=== PATIENT | male | born 1945 | race Caucasian/White ===

== ENCOUNTER 2016-07-14 12:26 | Inpatient (IN) | payer MEDICARE ==
[2016-07-14 13:38] LABS: Hematocrit 34 % (42-52); Hemoglobin 11.4 g/dl (14.0-18.0); Mean Corpuscular HGB Conc 34 g/dl (31-36); Mean Corpuscular Hemoglobin 27 pg (27-31); Mean Corpuscular Volume 81 fL (80-94); Mean Platelet Volume 8 um3 (7.4-10.4); Red Blood Count 4.18 10^6/ul (4.0-5.4); Red Cell Distribution Width 14 % (10.5-15); White Blood Count 9.4 10^3/ul (3.5-10.8)
[2016-07-14 13:51] LABS: Albumin 3.6 g/dL (3.2-5.2); BUN/Creatinine Ratio 19.1 (8-20); C Reactive Protein 5.72 mg/L (< 5.00); Calcium 8.9 mg/dL (8.6-10.3); EGFR African American 69.8 (>60); EGFR Non-African American 54.3 (>60); Globulin 2.7 g/dL (2-4); Potassium 4.5 mmol/L (3.5-5.0); Total Bilirubin 0.4 mg/dL (0.2-1.0); Total Protein 6.3 g/dL (6.4-8.9); Troponin I 0.03 ng/mL (<0.04)
[2016-07-14] MEDS ORDERED: Iodixanol* (CONTRAST) 320 MG/ML 100 ML SDV IV ONE (15:01)
[2016-07-14 15:18] LABS: Urine Bacteria Absent (Absent); Urine Bilirubin Negative (Negative); Urine Glucose 2+(150 mg/dL) (Negative); Urine Nitrite Negative (Negative)
--- NOTE | 2016-07-14 15:46 | RAD ---
CLINICAL HISTORY: Right lower quadrant pain COMPARISON: July 27, 2007 TECHNIQUE: Multiple contiguous axial CT scans were obtained of the abdomen and pelvis after the administration of intravenous contrast. Coronal and sagittal multiplanar reformations are submitted for review. Oral contrast was administered. Delayed images were obtained through the abdomen FINDINGS: LUNG BASES: The lung bases are clear. LIVER: The liver is diffusely low in attenuation compared to the spleen. There are no focal hepatic parenchymal masses. BILE DUCTS: There is no intrahepatic or extrahepatic biliary dilatation. GALLBLADDER: The gallbladder is not visualized. Surgical clips are noted in the gallbladder fossa. PANCREAS: The pancreas is normal, without mass or ductal dilatation. SPLEEN: Normal in size and appearance. UPPER GI TRACT: Evaluation of the gastrointestinal tract is limited by incomplete gastric distention. The upper GI tract is unremarkable. SMALL BOWEL AND MESENTERY: The small bowel is normal in contour, course, and caliber. There is no obstruction or dilatation. COLON: The appendix is noted to be tubular and dilated without significant peripancreatic inflammatory change. There is mucosal thickening of the cecum at the root of the appendix. ADRENALS: Normal bilaterally. KIDNEYS: The kidneys are normal in shape, size, contour, and axis. There is no hydronephrosis or nephrolithiasis. BLADDER: The bladder is smooth in contour. PELVIC ORGANS: The prostate is diffusely enlarged. The seminal vesicles are symmetric. AORTA: The aorta is normal. IVC: Unremarkable LYMPH NODES: There is no lymphadenopathy by size criteria. ABDOMINAL WALL: There is no evidence for abdominal wall hernia. BONES AND SOFT TISSUES: There are mild diffuse degenerative changes. OTHER: None IMPRESSION: 1. THE APPENDIX APPEARS HYDROPIC WITH MUCOSAL THICKENING OF THE CECUM AT THE BASE OF THE APPENDIX. 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 THE DIFFERENTIAL ALSO INCLUDES MUCOCELE OR MUCINOUS NEOPLASM OF THE APPENDIX. ACUTE APPENDICITIS IS CONSIDERED LESS LIKELY. RECOMMEND CORRELATION WITH DIRECT VISUALIZATION. 2. FATTY INFILTRATION OF THE LIVER
[2016-07-14] MEDS ORDERED: Ondansetron INJ* 2 MG/ML VIAL IV ONE (15:53)
[2016-07-14] MEDS ORDERED: Morphine INJ* 4 MG/ML 1 ML CARPUJECT IV ONE ×2 (15:53→16:38)
[2016-07-14] MEDS ORDERED: Acetaminophen TAB* 325 MG PO PRN (17:47)
[2016-07-14] MEDS ORDERED: Pantoprazole TAB (NF) 40 MG TAB PO ONE (17:47)
[2016-07-14] MEDS ORDERED: Dextrose 50% Syringe 50 ML* 25 GM/50 ML SYRINGE IV PUSH PRN (17:52)
[2016-07-14] MEDS ORDERED: Omeprazole CAP* 20 MG PO SCH (18:00)
[2016-07-14] MEDS ORDERED: Insulin GLARGINE(*) 1 UNITS UNIT SUBCUT SCH (18:00)
--- NOTE | 2016-07-14 18:15 | ED ---
I, Oh,Sussy, scribed for Saturnino Bynmu MD on 07/14/16 at 1332 . Abdominal Pain/Male - HPI Summary HPI Summary: This 71 y/o male presents to ED for acute, dull RLQ pain that woke him up this morning. Triage note indicates that pt's chief complaint was located at upper abd, but pt states that this is incorrect at the time of initial evaluation. Pt reports mild nausea but denies any vomiting, diarrhea, dysuria, or fever. Pt denies hx of any similar pain in the past. PMHx does include DM type II, cholelithiasis s/p cholecystectomy, kidney stone, and HTN. Pt did not have appendicitis before. Pt is nonsmoker and nondrinker. - History of Current Complaint Chief Complaint: EDAbdPain Stated Complaint: RIGHT ABD PAIN Time Seen by Provider: 07/14/16 13:17 Hx Obtained From: Patient Onset/Duration: Sudden Onset Timing: Constant Severity Initially: Moderate Severity Currently: Moderate Pain Intensity: 6 Pain Scale Used: 0-10 Numeric Location: Discrete At: RLQ Radiates: No Character: Dull Aggravating Factor(s): Nothing Alleviating Factor(s): Nothing Associated Signs And Symptoms: Positive: Nausea. Negative: Fever, Urinary Symptoms, Vomiting, Diarrhea - Allergies/Home Medications Allergies/Adverse Reactions: Allergies Allergy/AdvReac Type Severity Reaction Status Date / Time No Known Allergies Allergy Verified 07/14/16 13:06 Home Medications: Home Medications Insulin NPH (Human) (Isophane) [Novolin N Relion] 40 units SUBCUT DAILY [History Confirmed 07/14/16] Insulin NPH (Human) (Isophane) [Novolin N Relion] 80 units SUBCUT DAILY [History Confirmed 07/14/16] PMH/Surg Hx/FS Hx/Imm Hx Endocrine/Hematology History: Reports: Hx Diabetes Cardiovascular History: Reports: Hx Hypercholesterolemia, Hx Hypotension GI History: Reports: Other GI Disorders - cholelithiasis Infectious Disease History: No Infectious Disease History: Denies: Traveled Outside the [place] in Last 30 Days - Family History Known Family History: Negative: Hypertension, Diabetes - Social History Alcohol Use: None Hx Substance Use: No Substance Use Type: Reports: None Hx Tobacco Use: No Smoking Status (MU): Never Smoked Tobacco Review of Systems Negative: Fever Positive: Abdominal Pain - RLQ, Nausea. Negative: Vomiting, Diarrhea Negative: dysuria Negative: Anxious, Depressed All Other Systems Reviewed And Are Negative: Yes Physical Exam - Summary Physical Exam Summary: VITAL SIGNS: Reviewed. GENERAL: Patient is an obese male who is lying comfortable in the stretcher. Patient is not in any acute respiratory distress. HEAD AND FACE: Normocephalic and atraumatic. EYES: PERRLA, EOMI x 2, No injected conjunctiva. EARS: Hearing grossly intact. Ear canals and tympanic membranes are WNL. MOUTH: Oropharynx within normal limits. NECK: Supple, trachea is midline, no adenopathy, no JVD. CHEST: Symmetric, no tenderness at palpation LUNGS: Clear to auscultation bilaterally. No wheezing or crackles. CVS: RRR,, S1 and S2 present, no murmurs or gallops appreciated. ABDOMEN: Soft, positive RLQ tenderness. No signs of distention. Positive bowel sounds. No rebound no guarding, and no masses palpated. No abdominal bruit or pulsations. EXTREMITIES: FROM in all major joints, no edema, no cyanosis or clubbing. NEURO: Alert and oriented x 3. No acute neurological deficits. Speech is normal. SKIN: Dry and warm Triage Information Reviewed: Yes Vital Signs On Initial Exam: Initial Vitals Temp Pulse Resp BP Pulse Ox 97.4 F 74 18 131/52 100 07/14/16 12:30 07/14/16 12:30 07/14/16 12:30 07/14/16 12:30 07/14/16 12:30 Vital Signs Reviewed: Yes Diagnostics - Vital Signs Vital Signs Temp Pulse Resp BP Pulse Ox 07/14/16 12:30 97.4 F 74 18 131/52 100 - Laboratory Lab Results: Lab Results 07/14/16 07/14/16 07/14/16 Range/Units 13:20 13:20 13:20 WBC 9.4 (3.5-10.8) 10^3/ul RBC 4.18 (4.0-5.4) 10^6/ul Hgb 11.4 L (14.0-18.0) g/dl Hct 34 L (42-52) % MCV 81 (80-94) fL MCH 27 (27-31) pg MCHC 34 (31-36) g/dl RDW 14 (10.5-15) % Plt Count 157 (150-450) 10^3/ul MPV 8 (7.4-10.4) um3 Neut % (Auto) 77.4 (38-83) % Lymph % (Auto) 10.3 L (25-47) % Beltrami % (Auto) 7.7 (1-9) % Eos % (Auto) 3.9 (0-6) % Baso % (Auto) 0.7 (0-2) % Absolute Neuts (auto) 7.2 (1.5-7.7) 10^3/ul Absolute Lymphs (auto) 1.0 (1.0-4.8) 10^3/ul Absolute Monos (auto) 0.7 (0-0.8) 10^3/ul Absolute Eos (auto) 0.4 (0-0.6) 10^3/ul Absolute Basos (auto) 0.1 (0-0.2) 10^3/ul Absolute Nucleated RBC 0.01 10^3/ul Nucleated RBC % 0.1 Sodium 133 (133-145) mmol/L Potassium 4.5 (3.5-5.0) mmol/L Chloride 102 (101-111) mmol/L Carbon Dioxide 25 (22-32) mmol/L Anion Gap 6 (2-11) mmol/L BUN 25 H (6-24) mg/dL Creatinine 1.31 H (0.67-1.17) mg/dL Est GFR ( Amer) 69.8 (>60) Est GFR (Non-Af Amer) 54.3 (>60) BUN/Creatinine Ratio 19.1 (8-20) Glucose 244 H (70-100) mg/dL Calcium 8.9 (8.6-10.3) mg/dL Total Bilirubin 0.40 (0.2-1.0) mg/dL AST 13 (13-39) U/L ALT 13 (7-52) U/L Alkaline Phosphatase 60 (34-104) U/L Troponin I 0.03 (<0.04) ng/mL C-Reactive Protein 5.72 H (< 5.00) mg/L B-Natriuretic Peptide 54 ( - 100) pg/mL Total Protein 6.3 L (6.4-8.9) g/dL Albumin 3.6 (3.2-5.2) g/dL Globulin 2.7 (2-4) g/dL Albumin/Globulin Ratio 1.3 (1-3) Amylase 28 L (29-103) U/L Lipase 44 (11.0-82.0) U/L Result Diagrams: 07/14/16 13:20 07/14/16 13:20 Lab Statement: Any lab studies that have been ordered have been reviewed, and results considered in the medical decision making process. - CT Ab/P CT Interpretation: Positive (See Comments) - 1. THE APPENDIX APPEARS HYDROPIC WITH MUCOSAL THICKENING OF THE CECUM AT THE BASE OF THE APPENDIX. 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 THE DIFFERENTIAL ALSO INCLUDES MUCOCELE OR MUCINOUS NEOPLASM OF THE APPENDIX. ACUTE APPENDICITIS IS CONSIDERED LESS LIKELY. RECOMMEND CORRELATION WITH DIRECT VISUALIZATION. 2. FATTY INFILTRATION OF THE LIVER CT Interpretation Completed By: Radiologist - EKG 1315 Cardiac Rate: NL - 72 bpm EKG Rhythm: Sinus Rhythm ST Segment: Normal Ectopy: PVCs - Multiple Re-Evaluation - Re-Evaluation First Eval Re-Evaluation Time: 16:20 Change: Improved Comment: MD in room to update pt on CT imaging results and plan of care involving surgery consult and hospital admission. Pt is agreeable at this time. Abdominal Pain Fem Course/Dx - Course Assessment/Plan: This 71 y/o male presents to ED with chief complaint of RLQ pain. Pain started last night with nausea but without vomiting and diarrhea. Blood work is wnl except for mild anemia and mild renal insufficiency. 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 I discussed with Dr. Quintero ([facility]) who accepts the pt for admission. I aslo discussed the case with Dr. Amin (GI) who consulted the pt. Pt was given IV fluid, morphine for pain, and zonfran for nausea. He is hemodynamically stable and A & Ox3. - Diagnoses Differential Diagnosis/HQI/PQRI: Appendicitis, Bowel Obstruction, Constipation, Diverticulitis, Renal Colic Provider Diagnoses: Colonic neoplasm - Provider Notifications Discussed Care Of Patient With: Dr. Quintero (Surgery) at [address] Amin (GI) at [address] Love (Hospitalist) at 1638 PM Time Discussed With Above Provider: 16:16 Instructed by Provider To: Admit As Inpatient Discharge - Discharge Plan Condition: Stable Disposition: ADMITTED TO [facility] Referrals: Heath Mahoney MD [Primary Care Provider] - The documentation as recorded by the Carson arguelles Soohyun accurately reflects the service I personally performed and the decisions made by me, Saturnino Bynum MD.
[2016-07-14] MEDS: Morphine INJ* 4 MG/ML 1 ML CARPUJECT IV PRN (19:18)
[2016-07-14] MEDS: NS 0.9% 1000 ML* 1,000 ML IV SCH (19:20)
[2016-07-14] MEDS: Insulin LISPRO* 1 UNITS UNIT SUBCUT SCH (19:50)
[2016-07-14] MEDS: Heparin VIAL(*) 5000 UNITS/ML VIAL (FIVE THOUSAND) SUBCUT SCH (22:20)
[2016-07-15] MEDS: Morphine INJ* 4 MG/ML 1 ML CARPUJECT IV PRN ×2 (00:15→23:14)
[2016-07-15] MEDS: Insulin LISPRO* 1 UNITS UNIT SUBCUT SCH ×4 (00:15→20:00)
[2016-07-15] MEDS: NS 0.9% 1000 ML* 1,000 ML IV SCH ×2 (03:54→19:42)
--- NOTE | 2016-07-15 04:36 | CONS ---
CONSULTATION REPORT: DATE OF CONSULT: 07/14/16 PRIMARY CARE PROVIDER: Dr. Mahoney PHYSICIAN REQUESTING THE CONSULTATION: Dr. Quintero from surgery in regards to a patient with abdominal pain with diabetes and hypertension. CHIEF COMPLAINT: Abdominal pain. HISTORY OF PRESENT ILLNESS: The patient is a 71-year-old male with a history of diabetes, hypertension, obesity with a BMI of 40 kg per m. sq., who presents today complaining of sudden onset of right lower quadrant abdominal pain that happened today in the morning. The patient describes the pain as constant and initially at 2-3/10. At its maximum intensity, it is 6/10. Currently it is controlled with pain medication received in the emergency department. The patient has no other associated GI symptoms. He denies nausea or vomiting. He describes chronic epigastric problem that has been going on for "several years. " He had an EGD evaluation in 2010 which showed gastritis. That was due to history of anemia. At that point, he was placed on PPI. The patient describes the pain as intermittent, recurrent. The pain is epigastric and occurs usually after eating. Sometimes when he belches, it improves. Today though, he complains of different pain. It is localized in the right lower quadrant and it occurred in the morning and is constant. The patient did have one loose bowel movement today, which is not unusual for him. Usually, he has irregular bowel movements and usually they are loose. His last colonoscopy was 10 years ago as per patient and was "clean." His CT of the abdomen today showed appendiceal obstruction by possibility of colon mass. Dr. Quintero is admitting the patient for further evaluation and treatment, and Medicine is consulted in regards to medical management. PAST MEDICAL HISTORY: 1. History of diabetes type 2. 2. History of chronic kidney disease stage 3 due to diabetes. 3. History of hypertension. 4. Status post cholecystectomy. 5. History of gastritis on endoscopy in 2010. MEDICATIONS: Include: 1. NPH insulin 80 units in the morning and 40 units at night. 2. Hydrochlorothiazide 25 mg daily. 3. Glipizide 5 mg b.i.d. 4. Simvastatin 40 mg daily. 5. Omeprazole 20 mg b.i.d. 6. Lisinopril 40 mg daily. 7. Metformin 1000 mg at bedtime and 1500 mg in the a.m. 8. Metoprolol succinate 25 mg daily. ALLERGIES: No known drug allergies. FAMILY HISTORY: Positive for father who at the age of 84 as a consequence of COPD. Mother with history of heart disease who of pancreatic cancer at the age of 93. SOCIAL HISTORY: The patient denies any tobacco, alcohol, or drug use. 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 His surrogate is his , Ava Ochoa. REVIEW OF SYSTEMS: Please see history of present illness. All the remaining 14 systems were reviewed with the patient and were otherwise negative. PHYSICAL EXAM: Vitals: Blood pressure of 158/47, heart rate of 72 and regular , respiratory rate of 20, oxygen saturation 96% on room air, temperature of 97.4. General: The patient is a very pleasant 71-year-old obese male who is in no acute distress. Alert, awake, and oriented x3. HEENT: Head atraumatic, normocephalic. Eyes: Pupils are equal and reactive to light and accommodation. Oropharynx is clear. Mucosa moist. Neck: Supple. No JVD. No bruits bilaterally. Cardiovascular: Regular rate and rhythm. No murmurs. Respiratory : Clear to auscultation bilaterally. Abdomen: Large, protuberant, and soft. There is mild tenderness in the right lower quadrant with no rebound and no guarding. Bowel sounds present in all 4 quadrants. Extremities: There is no edema. Pulses +2 bilaterally. No clubbing or cyanosis. Neuro Evaluation: Speech is clear. Cranial nerves II through XII are grossly intact. Motor strength is 5/5 bilaterally. Psychiatric Evaluation: Oriented x3, pleasant and cooperative with the evaluation with no evidence of anxiety or depression. DIAGNOSTIC STUDIES/LABORATORY DATA: Laboratory data shows white blood cell count of 9.4, hemoglobin 11.4, hematocrit of 34, and platelets of 157. Sodium of 133, potassium 4.5, chloride 102, carbon dioxide 25, BUN 25, creatinine 1.3. Liver function tests were unremarkable. Glucose of 244, C-reactive protein of 5.7, troponin of 0.03. Urinalysis: Trace protein, trace rbc's, and +2 glucose. EKG showed sinus rhythm with 2 PVCs, borderline left axis deviation. Please note that when the patient was evaluated by myself, I observed his bus driver/monitor, and he did not have anymore premature ventricular complexes. The patient's most recent cardiac stress test was performed in 2013 and was " low risk." ASSESSMENT AND PLAN: This is a 71-year-old obese male with history of diabetes mellitus and hypertension, who presents with sudden onset of right lower quadrant abdominal pain with CT showing hydropic appendix with most likely appendiceal obstruction secondary to a colonic neoplasm. In regards to appendiceal obstruction, Dr. Quintero is admitting the patient. Dr. Amin is going to consult and most likely perform colonoscopy in a day or two. In regards to patient's history of chronic epigastric discomfort, the differential at this point includes gastritis versus hiatal hernia symptomatology versus gastroparesis. At this point, the patient is not complaining of that problem, and he has planned an outpatient evaluation with Dr. Amin with upper endoscopy to follow up on that. At this point, omeprazole 2 times a day is going to be continued. In regards to the patient's diabetes, the patient is clinically n.p.o. unless p.o. diet by the surgeon. Due to that, his insulin is going to be held and he is going to be placed on insulin sliding scale and his oral hypoglycemics also are going to be held. With regards to his hypertension, his current pressure is right now in the 150s. I will continue his Toprol-XL and hold his other blood pressure medications for the time being. In regards to preoperative evaluation of this patient, the patient has no history of worsening dyspnea with exertion. He has not had any chest pain. His last stress test was in 2013 and it was unremarkable. He never had cardiac evaluation and he never required one. His EKG did show 2 PVCs, but currently he has not had any frequent PVCs on telemetry monitored bed when observed. At this point, the patient is optimized for anticipated surgery and no further evaluation is required. For DVT prophylaxis, heparin subcutaneously was provided by the surgeon. Medicine will follow up with the patient on a daily basis. Thank you very much for allowing me to see your patient in consultation. Approximately 62 minutes was spent on the patient's consultation. CC: Dr. Amin; Dr. Quintero * [id number]/CPS #: [id number] MTDD
--- NOTE | 2016-07-15 05:01 | HP ---
HISTORY AND PHYSICAL: DATE OF ADMISSION: 07/14/16 REASON FOR ADMISSION: Right lower quadrant abdominal pain and abnormal CAT scan. HISTORY OF PRESENT ILLNESS: Mr. Ja Ochoa is a 71-year-old gentleman who presented to the emergency room after he developed some right lower quadrant abdominal pain early this morning. It seemed to progress in severity, presented to the emergency room this afternoon. It had not been associated with nausea or vomiting, although he has been somewhat anorexic. He has had no fevers, shakes, or chills. Generalized abdominal pain. He had normal looser bowel movements yesterday. He denies any recent melena or change in bowel habits including bright red blood per rectum. He does give a history of intermittent loose bowel movements, but describes this as being very chronic over the past many years. In the emergency room, he was noted to be afebrile with stable vital signs. He has some tenderness in the right lower quadrant without rebound, guarding, or peritoneal signs. Laboratory values included a white blood cell count of 9.4 with a hemoglobin of 11.4 with an MCV of 81. Review of the older records of past 3 to 4 years shows this anemia to be pretty much unchanged. BUN and creatinine of 25 and 1.1, but the remainder of his chemistry values were otherwise unremarkable. He underwent a CT scan of the abdomen and pelvis. I did review these images. This shows an appendix, which was hydropic, i.e., dilated without evidence of periappendiceal inflammation. The appendix diameter of at least 2 cm. There was significant mucosal thickening at the cecum with a mass-like effect, which likely represented appendiceal obstruction secondary to colonic neoplasm, but also consideration of appendiceal mucocele/mucinous neoplasm of the appendix. Acute appendicitis was considered less likely. Also noted was fatty infiltration of the liver, but no other acute findings were noted. He gives a history of anemia and he had a colonoscopy about 10 years ago. He did undergo an upper endoscopy about 5 years ago for anemia and also a capsule endoscopy, which were unremarkable. He does take omeprazole for reflux disease. Only other associated symptoms over the past month would be some epigastric discomfort that lasted for several hours after eating. PAST MEDICAL HISTORY: 1. Obesity. 2. Insulin-dependent diabetes. 3. Hypertension. 4. Hypercholesterolemia. MEDICATIONS: Include: 1. Metoprolol 25 mg daily. 2. Metformin daily. 3. Lisinopril 40 mg daily. 4. Omeprazole 20 mg b.i.d. 5. Glipizide/hydrochlorothiazide 25 mg daily. 6. Simvastatin 40 mg daily. PAST SURGICAL HISTORY: Laparoscopic cholecystectomy. ALLERGIES: He has no known drug allergies. 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 He is . He has grown children. REVIEW OF SYSTEMS: Cerebrovascular: He has no visual disturbance or headaches. Cardiovascular: No chest pain or shortness of breath. Pulmonary: No wheezing or hemoptysis. GI: As per above. : No urgency or hematuria. Musculoskeletal: Unremarkable. Psych: Unremarkable. PHYSICAL EXAMINATION GENERAL: He is an obese male, appears to be in no apparent distress. Awake, alert, conversive, and actually quite pleasant. VITAL SIGNS: Temperature 97.4, pulse 72, and blood pressure 158/47. HEENT: Sclerae is anicteric. Oral mucosa is moist. External ears are unremarkable. NECK: Trachea was midline. There is no obvious masses or asymmetry. LUNGS: Clear to auscultation with diminished breath sounds at the bases. He has normal respiratory effort. HEART: Regular rate and rhythm without murmurs, rubs, or gallops. ABDOMEN: Obese and soft. He has some difficulty to see upper abdominal laparoscopic incision without hernia. He had normoactive bowel sounds throughout. He is nondistended. He has some tenderness in the right lower quadrant on deeper palpation without rebound, guarding, or prepotential signs. I appreciate no inguinal hernias. EXTREMITIES: Show no cyanosis or edema. PSYCHIATRIC: He is awake, alert, and oriented x3. He has normal judgement and insight. IMPRESSION: 1. Right lower quadrant abdominal pain without acute abdominal findings. He has a normal white count. He is mildly anemic, which appears to be chronic. CT scan as per above, which shows findings worrisome for a cecal malignancy with probable appendiceal orifice obstruction causing distention of the appendix versus an appendiceal neoplasm such as a mucocele, which maybe somewhat intussuscepted with the right colon. This does not appear to be acute appendicitis both clinically as well as by the CT scan findings and I just suspect this discomfort is due to the appendiceal obstruction. 2. Insulin-dependent diabetes. 3. Morbid obesity. 4. Hypertension. 5. Hypercholesterolemia. PLAN: 1. The patient will be admitted to the Surgical Services and kept n.p.o. I will not start IV antibiotics at this time. 2. Administer analgesia. 3. Hospitalist consultation will be obtained for management of his diabetes, hypertension, and medical conditions. He also will require most likely preoperative medical evaluation for surgery. 4. Gastroenterology consult has been obtained. I discussed the case with Dr. Luis Alfredo Amin. I think that a colonoscopy is warranted for several reasons initially to make a diagnosis of a possible neoplasm, which would require a right hemicolectomy. Colonoscopy would also rule out any other synchronous disease prior to any surgical intervention. 5. Dr. Amin will see him most likely tomorrow to start a colonoscopy prep and plan colonoscopy for Friday. 6. I discussed all the findings both with the patient and his at the bedside including a written diagrams explaining the pathology and the proposed workup and treatment course. I suspect this will require surgical intervention , most likely with a right hemicolectomy, be the laparoscopic open this admission after the above workup. Obviously, if his pain worsens, developed some worsening discomfort such as developed signs of peritonitis, would require more urgent/emergent surgical procedure. CC: Heath Mahoney MD of [facility]; Luis Alfredo Amin MD from [facility] * [id number]/CPS #: [id number] [facility]
[2016-07-15] MEDS: Heparin VIAL(*) 5000 UNITS/ML VIAL (FIVE THOUSAND) SUBCUT SCH ×3 (05:59→22:26)
[2016-07-15 06:47] LABS: Hematocrit 34 % (42-52); Hemoglobin 11.4 g/dl (14.0-18.0); Mean Corpuscular HGB Conc 33 g/dl (31-36); Mean Corpuscular Hemoglobin 27 pg (27-31); Mean Corpuscular Volume 82 fL (80-94); Mean Platelet Volume 8 um3 (7.4-10.4); Red Blood Count 4.15 10^6/ul (4.0-5.4); Red Cell Distribution Width 15 % (10.5-15); White Blood Count 13.5 10^3/ul (3.5-10.8)
[2016-07-15] MEDS ORDERED: Insulin NPH(*) 1 UNITS UNIT SUBCUT SCH (07:00)
[2016-07-15 07:06] LABS: BUN/Creatinine Ratio 16.1 (8-20); Calcium 8.5 mg/dL (8.6-10.3); EGFR African American 66.3 (>60); EGFR Non-African American 51.5 (>60); Potassium 4.4 mmol/L (3.5-5.0)
[2016-07-15] MEDS: Omeprazole CAP* 20 MG PO SCH ×2 (07:25→16:35)
[2016-07-15] MEDS: Atorvastatin* 20 MG TAB PO SCH (08:30)
[2016-07-15] MEDS: Metoprolol Succinate XL TAB* 25 MG PO SCH (08:30)
--- NOTE | 2016-07-15 09:45 | PN ---
Progress Note - Progress Note SOAP: Subjective: Some more pain in right lower quadrant today No N/V, no BM. Anorexic Objective: Temp Pulse Resp BP Pulse Ox 99.4 F 67 18 147/54 99 07/15/16 07:42 07/15/16 07:42 07/15/16 08:00 07/15/16 07:42 07/15/16 07:42 Intake & Output 07/13/16 07/14/16 07/15/16 07/16/16 06:59 06:59 06:59 06:59 Intake Total 1035 Output Total 800 150 Balance 235 -150 Weight 295 lb Intake: IV Fluids 985 NS (0.9%) 985 Oral 50 Output: Urine 800 150 PEX: Comfortable Lungs are CTA Abd is soft and non-distended. There are decreased bowel sounds preent. He has tenderness in the RLQ without mass with some guarding. No generalized pain. Extremities without edema Laboratory Last Values WBC 13.5 10^3/ul (3.5-10.8) H 07/15/16 06:29 RBC 4.15 10^6/ul (4.0-5.4) 07/15/16 06:29 Hgb 11.4 g/dl (14.0-18.0) L 07/15/16 06:29 Hct 34 % (42-52) L 07/15/16 06:29 MCV 82 fL (80-94) 07/15/16 06:29 MCH 27 pg (27-31) 07/15/16 06:29 MCHC 33 g/dl (31-36) 07/15/16 06:29 RDW 15 % (10.5-15) 07/15/16 06:29 Plt Count 161 10^3/ul (150-450) 07/15/16 06:29 MPV 8 um3 (7.4-10.4) 07/15/16 06:29 Neut % (Auto) 77.4 % (38-83) 07/14/16 13:20 Lymph % (Auto) 10.3 % (25-47) L 07/14/16 13:20 [place] % (Auto) 7.7 % (1-9) 07/14/16 13:20 Eos % (Auto) 3.9 % (0-6) 07/14/16 13:20 Baso % (Auto) 0.7 % (0-2) 07/14/16 13:20 Absolute Neuts (auto) 7.2 10^3/ul (1.5-7.7) 07/14/16 13:20 Absolute Lymphs (auto) 1.0 10^3/ul (1.0-4.8) 07/14/16 13:20 Absolute Monos (auto) 0.7 10^3/ul (0-0.8) 07/14/16 13:20 Absolute Eos (auto) 0.4 10^3/ul (0-0.6) 07/14/16 13:20 Absolute Basos (auto) 0.1 10^3/ul (0-0.2) 07/14/16 13:20 Absolute Nucleated RBC 0.01 10^3/ul 07/14/16 13:20 Nucleated RBC % 0.1 07/14/16 13:20 Sodium 135 mmol/L (133-145) 07/15/16 06:29 Potassium 4.4 mmol/L (3.5-5.0) 07/15/16 06:29 Chloride 101 mmol/L (101-111) 07/15/16 06:29 Carbon Dioxide 26 mmol/L (22-32) 07/15/16 06:29 Anion Gap 8 mmol/L (2-11) 07/15/16 06:29 BUN 22 mg/dL (6-24) 07/15/16 06:29 Creatinine 1.37 mg/dL (0.67-1.17) H 07/15/16 06:29 Est GFR ( Amer) 66.3 (>60) 07/15/16 06:29 Est GFR (Non-Af Amer) 51.5 (>60) 07/15/16 06:29 BUN/Creatinine Ratio 16.1 (8-20) 07/15/16 06:29 Glucose 171 mg/dL (70-100) H 07/15/16 06:29 POC Glucose (mg/dL) 173 mg/dL (74-106) H 07/15/16 05:53 Calcium 8.5 mg/dL (8.6-10.3) L 07/15/16 06:29 Total Bilirubin 0.40 mg/dL (0.2-1.0) 07/14/16 13:20 AST 13 U/L (13-39) 07/14/16 13:20 ALT 13 U/L (7-52) 07/14/16 13:20 Alkaline Phosphatase 60 U/L (34-104) 07/14/16 13:20 Troponin I 0.03 ng/mL (<0.04) 07/14/16 13:20 C-Reactive Protein 5.72 mg/L (< 5.00) H 07/14/16 13:20 B-Natriuretic Peptide 54 pg/mL (-100) 07/14/16 13:20 Total Protein 6.3 g/dL (6.4-8.9) L 07/14/16 13:20 Albumin 3.6 g/dL (3.2-5.2) 07/14/16 13:20 Globulin 2.7 g/dL (2-4) 07/14/16 13:20 Albumin/Globulin Ratio 1.3 (1-3) 07/14/16 13:20 Amylase 28 U/L (29-103) L 07/14/16 13:20 Lipase 44 U/L (11.0-82.0) 07/14/16 13:20 Urine Color Yellow 07/14/16 15:00 Urine Appearance Clear 07/14/16 15:00 Urine pH 6.0 (5-9) 07/14/16 15:00 Ur Specific [place] 1.021 (1.010-1.030) 07/14/16 15:00 Urine Protein 1+(30 mg/dl) (Negative) H 07/14/16 15:00 Urine Ketones Negative (Negative) 07/14/16 15:00 Urine Blood Negative (Negative) 07/14/16 15:00 Urine Nitrate Negative (Negative) 07/14/16 15:00 Urine Bilirubin Negative (Negative) 07/14/16 15:00 Urine Urobilinogen Negative (Negative) 07/14/16 15:00 Ur Leukocyte Esterase Negative (Negative) 07/14/16 15:00 Urine WBC (Auto) Trace(0-5/hpf) (Absent) 07/14/16 15:00 Urine RBC (Auto) 1+(3-5/hpf) (Absent) H 07/14/16 15:00 Urine Bacteria Absent (Absent) 07/14/16 15:00 Urine Glucose 2+(150 mg/dl) (Negative) H 07/14/16 15:00 Assessment: RLQ abd pain with mass in cecum/appendix--?? neoplasm v benign process WBC elevation this morning Medical issues as documented Plan: With persistent and slightly worsening pain and increase in WBC I'm concerned that there is developing inflammation/perforation that will require operative intervention prior to any further work-up such as colonoscopy. I discussed with Dr. Amin and colonoscopy cannot be done until tomorrow and I feel that surgical intervention is indicated to treat and thus we will proceed with OR today and plan laparoscopy and probable laparotomy later today. Will start IV antibiotics and keep NPO Discussed also with patient and he agrees with plan. Dr. Andrade will be performing surgery and I have discussed the case with him in detail and also informed the patient of this. Also discussed with Felipa Castle from hospitalist service.
[2016-07-15] MEDS ORDERED: Piperac/Tazob 3.375 gm in NS* 3.375 GM/100 ML BAG IVPB ONE (10:00)
[2016-07-15] MEDS ORDERED: Buffered Lidocaine 1% SYR 3ML* 3 ML/SYR SYRINGE INTRADERM ONE (10:06)
[2016-07-15] MEDS ORDERED: Famotidine IV* 10 MG/ML 2 ML (20 mg) IV ONE (10:06)
[2016-07-15] MEDS ORDERED: Metoclopramide IV* 5 MG/ML 2 ML VIAL IV SLOW PU ONE (10:06)
[2016-07-15] MEDS ORDERED: HYDROmorphone INJ* 1 MG/ML CARPUJECT SYRINGE ONE ×5 (10:20→18:38)
[2016-07-15] MEDS ORDERED: fentaNYL* 50 MCG/ML 5 ML VIAL (250 MCG VIAL) ONE (10:20)
[2016-07-15] MEDS ORDERED: Midazolam* 1 MG/ML 5 ML VIAL (5 MG) ONE (10:20)
[2016-07-15] MEDS ORDERED: Ketorolac INJ* 30 MG/ML 1 ML VIAL ONE (10:23)
[2016-07-15] MEDS ORDERED: Succinylcholine* 20 MG/ML 10 ML VIAL ONE (10:23)
[2016-07-15] MEDS ORDERED: Propofol* 10 MG/ML 20 ML BTL IV PUSH ONE (10:23)
[2016-07-15] MEDS ORDERED: Lidocaine 2% MPF* 2 ML VIAL ONE (10:23)
[2016-07-15] MEDS ORDERED: Ondansetron INJ* 2 MG/ML VIAL ONE ×2 (10:23→23:13)
--- NOTE | 2016-07-15 10:27 | PN ---
Subjective Date of Service: 07/15/16 Interval History: Pt reports his RLQ pain is "more diffuse and not as localized compared to yesterday". Reports pain is the same as yesterday but is requiring pain medication, reporting the pain increases with movement. Denies fever or chills. Reports nausea once yesterday but denies further nausea. no vomiting. Reports no appetite in days. No BM in 2-3 days but is passing flatulence. Objective Active Medications: Acetaminophen (Tylenol Tab*) 650 mg PO Q6H PRN PRN Reason: FEVER Atorvastatin Calcium (Lipitor*) 20 mg PO DAILY [facility] Last Admin: 07/15/16 08:30 Dose: 20 mg Dextrose (D50w Syringe 50 Ml*) 12.5 gm IV PUSH .FOR FS < 60 - SS PRN PRN Reason: FS < 60 Famotidine (Pepcid Iv*) 20 mg IV ONCE ONE Stop: 07/15/16 10:07 Heparin Sodium (Porcine) (Heparin Vial(*)) 5,000 units SUBCUT Q8HR [facility] Last Admin: 07/15/16 05:59 Dose: 5,000 units Sodium Chloride (Ns 0.9% 1000 Ml*) 1,000 mls @ 125 mls/hr IV PER RATE [facility] Last Admin: 07/15/16 03:54 Dose: 125 mls/hr Piperacillin Sod/Tazobactam Sod (Zosyn 3.375 Gm In Ns Premix*) 3.375 gm in 100 mls @ 200 mls/hr IVPB ONCE ONE Stop: 07/15/16 10:29 Piperacillin Sod/Tazobactam Sod (Zosyn 3.375 Gm In Ns Premix*) 3.375 gm in 100 mls @ 25 mls/hr IVPB Q8H [facility] Lactated Ringer's (Lactated Ringers 1000 Ml Bag*) 1,000 mls @ 125 mls/hr IV PER RATE [facility] Insulin Glargine (Lantus(*)) 10 units SUBCUT Q24H [facility] Last Admin: 07/14/16 19:51 Dose: 10 units Insulin Human Lispro (Humalog*) 0 units SUBCUT Q6HR [facility] PRN Reason: Protocol Last Admin: 07/15/16 05:59 Dose: 3 units Lidocaine/Sodium Bicarbonate (Buffered Lidocaine 1% Syrin*) 0.2 ml INTRADERM ONCE ONE Stop: 07/15/16 10:07 Metoclopramide HCl (Reglan Iv*) 10 mg IV SLOW PU ONCE ONE Stop: 07/15/16 10:07 Metoprolol Succinate (Toprol Xl Tab*) 25 mg PO DAILY [facility] Last Admin: 07/15/16 08:30 Dose: 25 mg Morphine Sulfate (Morphine Inj (Syringe)*) 4 mg IV Q1H PRN PRN Reason: PAIN Last Admin: 07/15/16 00:15 Dose: 4 mg Omeprazole (Prilosec Cap*) 20 mg PO 0730,1630 [facility] Last Admin: 07/15/16 07:25 Dose: 20 mg Polyethylene Glycol/Electrolytes (Golytely*) 4,000 ml PO 1600 ONE Stop: 07/15/16 16:01 Vital Signs 07/14/16 07/14/16 07/14/16 18:00 18:30 19:13 Temperature 98.3 F Pulse Rate 70 77 86 Respiratory 19 26 20 Rate Blood Pressure 140/61 128/65 144/47 (mmHg) O2 Sat by Pulse 95 94 100 Oximetry 07/14/16 07/14/16 07/14/16 19:18 20:06 20:18 Temperature Pulse Rate Respiratory 18 18 18 Rate Blood Pressure (mmHg) O2 Sat by Pulse Oximetry 07/15/16 07/15/16 07/15/16 00:11 00:15 01:15 Temperature 98.6 F Pulse Rate 69 Respiratory 16 16 16 Rate Blood Pressure 136/40 (mmHg) O2 Sat by Pulse 94 Oximetry 07/15/16 07/15/16 07/15/16 04:21 07:42 08:00 Temperature 98.1 F 99.4 F Pulse Rate 68 67 Respiratory 16 18 18 Rate Blood Pressure 130/39 147/54 (mmHg) O2 Sat by Pulse 96 99 Oximetry Oxygen Devices in Use Now: None Appearance: obese 71 yo male laying in bed in NAD A+O x3 Eyes: No Scleral Icterus Respiratory: Symmetrical Chest Expansion and Respiratory Effort, Clear to Auscultation Cardiovascular: NL Sounds; No Murmurs; No JVD, RRR, No Edema Abdominal: - - hypoactive BS. Tenderness to RLQ, no guarding. soft. Extremities: No Edema, No Clubbing, Cyanosis Neurological: Alert and Oriented x 3 Lines/Tubes/Other Access: Clean, Dry and Intact Peripheral IV Nutrition: - - NPO Result Diagrams: 07/15/16 06:29 07/15/16 06:29 Additional Lab and Data: Lab Results 07/14/16 07/14/16 07/14/16 Range/Units 13:20 13:20 13:20 WBC 9.4 (3.5-10.8) 10^3/ul RBC 4.18 (4.0-5.4) 10^6/ul Hgb 11.4 L (14.0-18.0) g/dl Hct 34 L (42-52) % MCV 81 (80-94) fL MCH 27 (27-31) pg MCHC 34 (31-36) g/dl RDW 14 (10.5-15) % Plt Count 157 (150-450) 10^3/ul MPV 8 (7.4-10.4) um3 Neut % (Auto) 77.4 (38-83) % Lymph % (Auto) 10.3 L (25-47) % [place] % (Auto) 7.7 (1-9) % Eos % (Auto) 3.9 (0-6) % Baso % (Auto) 0.7 (0-2) % Absolute Neuts (auto) 7.2 (1.5-7.7) 10^3/ul Absolute Lymphs (auto) 1.0 (1.0-4.8) 10^3/ul Absolute Monos (auto) 0.7 (0-0.8) 10^3/ul Absolute Eos (auto) 0.4 (0-0.6) 10^3/ul Absolute Basos (auto) 0.1 (0-0.2) 10^3/ul Absolute Nucleated RBC 0.01 10^3/ul Nucleated RBC % 0.1 Sodium 133 (133-145) mmol/L Potassium 4.5 (3.5-5.0) mmol/L Chloride 102 (101-111) mmol/L Carbon Dioxide 25 (22-32) mmol/L Anion Gap 6 (2-11) mmol/L BUN 25 H (6-24) mg/dL Creatinine 1.31 H (0.67-1.17) mg/dL Est GFR ( Amer) 69.8 (>60) Est GFR (Non-Af Amer) 54.3 (>60) BUN/Creatinine Ratio 19.1 (8-20) Glucose 244 H (70-100) mg/dL Calcium 8.9 (8.6-10.3) mg/dL Total Bilirubin 0.40 (0.2-1.0) mg/dL AST 13 (13-39) U/L ALT 13 (7-52) U/L Alkaline Phosphatase 60 (34-104) U/L Troponin I 0.03 (<0.04) ng/mL C-Reactive Protein 5.72 H (< 5.00) mg/L B-Natriuretic Peptide 54 ( - 100) pg/mL Total Protein 6.3 L (6.4-8.9) g/dL Albumin 3.6 (3.2-5.2) g/dL Globulin 2.7 (2-4) g/dL Albumin/Globulin Ratio 1.3 (1-3) Amylase 28 L (29-103) U/L Lipase 44 (11.0-82.0) U/L Assess/Plan/Problems-Billing Assessment: 71 yo male with PMH of morbid obesity, HTN, Insulin dependent DM 2, CKD who presents to the ED on 07/14/16 with c/o abdominal pain found to have appendiceal obstruction by possibility of colon mass. - Patient Problems (1) Abdominal pain Comment: - Dispo per surgery - concern for appendiceal obstruction by possibility of colon mass. surgery concerned for increasing WBCs and diffuse pain, plan to take to surgery this afternoon. In regards to pre-op eval his RCRI score is 2 placing him at a 6.6% risk of cardiac event. He has METS > 4. Chronic diseases include HTN, CKD and DM which at his baseline are fairly well controlled. Please see Sandra Astorga dictated pre-op eval. There is no further recommended cardiac testing, pt is optimized to proceed with surgery. - GI to see pt - continue zoysn - continue LR @ 125 ml/hr - check labs in am. (2) Diabetes Comment: - continue to hold glipizide and metformin - continue lispro SS and lantus. (3) HTN (hypertension) Comment: - controlled. continue metoprolol. hold lisinopril and HCTZ (4) CKD (chronic kidney disease) Current Visit: Yes Comment: - appears to be at baseline (5) DVT prophylaxis Comment: - HSQ (6) Full code status Status and Disposition: inpatient. Most likely home when medically stable for DC
[2016-07-15] MEDS ORDERED: Bupivacaine 0.25% EPI 200,000* 30 ML SDV ONE (12:05)
[2016-07-15] MEDS ORDERED: Insulin REGULAR(*) 1 UNITS UNIT ONE ×3 (12:32→17:46)
[2016-07-15] MEDS ORDERED: fentaNYL* 50 MCG/ML 2 ML VIAL (100 MCG VIAL) ONE ×5 (12:39→18:38)
[2016-07-15] MEDS ORDERED: Ertapenem* 1 GM in NS 0.9% 50 ML* 50 ML IVPB ONE (13:15)
[2016-07-15] MEDS ORDERED: Rocuronium* 10 MG/ML VIAL ONE (13:56)
[2016-07-15] MEDS: Piperac/Tazob 3.375 gm in NS* 3.375 GM/100 ML BAG IVPB SCH ×2 (15:07→22:24)
[2016-07-15] MEDS ORDERED: PEG 3000 GI LAVAGE* 1 GALLON PO ONE (16:00)
--- NOTE | 2016-07-15 17:10 | SURGPN ---
Brief Operative Note - Surgery Procedures: Procedures Pre-OP Diagnoses: Appendiceal mass Post-op Diagnosis: same Procedure: Diagnostic laparoscopy, Open Right colectomy Surgeon: Lupe Asst: Ruby metzgert Timothy DUMASA Anethesia: JAMAR Ramos EBL: <100 IVF: 3800cc LR Specimen: R Colon Drains: none agee: 100cc
[2016-07-15] MEDS ORDERED: Insulin REGULAR(*) 1 UNITS UNIT SUBCUT ONE ×2 (17:30→17:32)
[2016-07-15] MEDS ORDERED: Ondansetron INJ* 2 MG/ML VIAL IV PRN (17:31)
[2016-07-15] MEDS ORDERED: DiMENhydriNATE IV* 50 MG/ML VIAL IV PUSH PRN (17:31)
[2016-07-15] MEDS ORDERED: PROCHLORPERAZINE INJ 5 MG/ML 2 ML VIAL IV PRN (17:31)
[2016-07-15] MEDS ORDERED: DiMENhydriNATE IV* 50 MG/ML VIAL ONE (17:47)
[2016-07-15] MEDS: fentaNYL* 50 MCG/ML 2 ML VIAL (100 MCG VIAL) IV PRN ×3 (17:50→18:40)
[2016-07-15] MEDS: HYDROmorphone INJ* 1 MG/ML CARPUJECT SYRINGE IV PRN ×3 (17:51→18:48)
[2016-07-15] MEDS ORDERED: Insulin GLARGINE(*) 1 UNITS UNIT SUBCUT SCH (21:00)
[2016-07-15] MEDS: Ondansetron INJ* 2 MG/ML VIAL IV PRN (23:16)
[2016-07-16] MEDS: Insulin LISPRO* 1 UNITS UNIT SUBCUT SCH ×8 (00:31→22:26)
[2016-07-16] MEDS: Morphine INJ* 4 MG/ML 1 ML CARPUJECT IV PRN ×5 (03:12→22:35)
[2016-07-16] MEDS: NS 0.9% 1000 ML* 1,000 ML IV SCH ×3 (03:43→22:13)
[2016-07-16] MEDS: Heparin VIAL(*) 5000 UNITS/ML VIAL (FIVE THOUSAND) SUBCUT SCH ×3 (05:45→22:31)
[2016-07-16] MEDS: Piperac/Tazob 3.375 gm in NS* 3.375 GM/100 ML BAG IVPB SCH ×3 (05:47→22:13)
[2016-07-16] MEDS: Atorvastatin* 20 MG TAB PO SCH (08:14)
[2016-07-16] MEDS: Metoprolol Succinate XL TAB* 25 MG PO SCH (08:14)
[2016-07-16] MEDS: Omeprazole CAP* 20 MG PO SCH ×2 (08:14→17:06)
[2016-07-16] MEDS: Ondansetron INJ* 2 MG/ML VIAL IV PRN ×2 (08:15→18:28)
[2016-07-16 08:28] LABS: BUN/Creatinine Ratio 14.5 (8-20); EGFR African American 44.6 (>60); EGFR Non-African American 34.7 (>60); Hematocrit 29 % (42-52); Hemoglobin 9.4 g/dl (14.0-18.0); Mean Corpuscular HGB Conc 32 g/dl (31-36); Mean Corpuscular Hemoglobin 27 pg (27-31); Mean Corpuscular Volume 84 fL (80-94); Mean Platelet Volume 8 um3 (7.4-10.4); Potassium 4.9 mmol/L (3.5-5.0); Red Blood Count 3.49 10^6/ul (4.0-5.4); Red Cell Distribution Width 15 % (10.5-15); White Blood Count 7.1 10^3/ul (3.5-10.8)
[2016-07-16] MEDS ORDERED: NS 0.9% 1000 ML* 1,000 ML IV ONE (08:34)
--- NOTE | 2016-07-16 08:41 | PN ---
Progress Note - Progress Note SOAP: Subjective: pt seen and examined. c/o abdo pain, no flatus, thirsty Objective: af vss, TM102 UO 200cc/last shift lungs poor insp effort abdo: obese, tender diffusely dressing intact no calf tenderness labs noted Assessment: POD1 r colectomy, elevated FS, elevated creatinine Plan: OOB glucose control bolus 1L NS labs in am ice chips abx for now
[2016-07-16] MEDS ORDERED: Pneumococcal *Vac Polyvalent 0.5 ML VIAL IM ONE (09:00)
[2016-07-16] MEDS ORDERED: Insulin GLARGINE(*) 1 UNITS UNIT SUBCUT ONE (10:30)
--- NOTE | 2016-07-16 14:46 | OP ---
DATE OF OPERATION: 07/15/16 - ROOM #339 DATE OF : 49 SURGEON: Anuj Andrade MD COUNTER FORMER: MARIANNE Sahni SECOND BELT WEAVER: BABAK Lara ANESTHESIOLOGIST: Dr. Ramos. ANESTHESIA: General anesthesia. PRE-OP DIAGNOSIS: Appendiceal mass. POST-OP DIAGNOSIS: Appendiceal mass. OPERATIVE PROCEDURE: Diagnostic laparoscopy, open right colectomy. INDICATIONS: Mr. Ochoa is a 71-year-old gentleman admitted yesterday to the hospital with complaints of right lower quadrant pain. The patient's workup including CT scan and labs in the emergency room led to a consultation with Surgery and was seen by Dr. Quintero. The patient was noted to have a cecal mass that was concerning for either appendiceal or cecal malignancy likely causing obstruction and appendicitis. The patient was admitted, maintained NPO status. GI consultation was performed. They made a recommendation of a colonoscopy but a non-urgent one. The patient worsened in the overnight with elevated white count and worsening abdominal pain. Consideration was that he was suffering with acute appendicitis secondary to this lesion. I met him on the day of surgery and outlined the recommendation of diagnostic laparoscopy with possibility of an appendectomy with a partial cecectomy if it was amenable to this with the likelihood of converting to laparotomy and right hemicolectomy. I outlined the details of the procedure, going over the risks, benefits, and alternatives with the patient. The patient signed consent. He understood the possible complications, which included not limited to bleeding, infection, leak, intraabdominal infection, sepsis, ureteral injury, adjacent injury to duodenum or small bowel, need for additional surgeries, prolonged hospitalization, ICU care, and even . ESTIMATED BLOOD LOSS: Less than 100 cc. IV FLUIDS: 3800 cc of crystalloid fluid given. SPECIMEN: Right colon. DRAINS: None. GUERRIER CATHETER: 100 cc in the bag at the end of the procedure. COUNTS: Lap pad count and instrument count correct at the end of the procedure. DISPOSITION: The patient extubated and transferred to the PACU in stable condition. DESCRIPTION OF PROCEDURE: The patient was taken to the operating room, placed on the operating table in the supine position. Preoperative antibiotics were given. Sequential devices were placed on bilateral lower extremities. General anesthesia was induced. Guerrier catheter inserted and the patient's abdomen was clipped of hair and prepped and draped in the standard surgical fashion and a time-out was performed. Folds of the umbilical were elevated anteriorly and a Veress needle was inserted into the abdominal cavity, which was then allowed to insufflate to a pressure of 15 mmHg. The patient tolerated the insufflation well. An upper midline 12-mm port was then inserted. Laparoscope was inserted through this. There was no evidence of injury from the trocar insertion or from the Veress needle. Additional trocars were then placed in the following position: A 5 mm in the supraumbilical region and a 5-mm in the lower midline. Table was repositioned. Review of the abdomen showed normal-appearing small bowel, showed exudative drainage at the right lower quadrant along the appendix that was significantly enlarged. It did not show evidence of perforation and never did perforate throughout the procedure. The small bowel was reflected superiorly and the terminal ileum identified. This was retracted superiorly and anteriorly and with sharp dissection, we freed up the beginning of his ligament of Treitz to allow for better visualization of the cecum just inferior to the ileocecal valve. This enlarged appendix seemed to intussuscept into the cecum. We were able to take the lateral attachments off the cecum up to about the mid portion and we retracted our lesion medially and went around the lower part of this freeing up its attachments at the site as well. With traction on the appendiceal lesion, we could remove the intussusception but there was a concern that this would not be appropriate to just transect at the area proximal to the appendix and decision was made to perform a formal right hemicolectomy. Table was repositioned to a reverse Trendelenburg. The omentum was identified. There appeared to be no other lesion. It was reflected superiorly and we opened up a window within this omentum. There was a significant amount of fat and at this time, we decided to perform the open portion of the procedure. A large transverse incision was made at mid portion between the anterior superior iliac spine and the costal margin. This was extended to the midline from the right flank. This was dissected through all the layers of the abdominal wall and entry into the abdominal cavity was made. We approached the lesion. It was reflected superiorly and we continued the dissection to free the lateral attachments along the white line of Toldt right up to the hepatic flexure. Next, the omentum was transected at the mid portion of the transverse colon and we were able to identify the plane of mesocolon taking the colon off the gallbladder fossa from the area where the gallbladder previously removed. Once we were able to fully mobilize the colon, we identified an area in the small bowel. The lesion was fully mobilized along with the colon and was ready to be transected. The small bowel approximately 12 cm in the ileocecal valve laid without tension along the area of the right transverse colon. Blood supply appeared intact, although difficult to palpate given the amount of adipose tissue. The mesentery was taken with the LigaSure device taking care to get much of the mesentery to the right colon. It should be noted that the duodenum was identified and protected throughout the procedure. With the mesentery taken, the two ends of what would become our anastomosis were brought in apposition to one another. An enterotomy and a colotomy were made and 80-mm blue load TARYN stapler was fired across this to create anastomosis. The common defect along with the specimen was taken with 90 TA stapler. It was passed off as specimen. There was scant amount of soilage. This was removed and the anastomosis irrigated. We dunked the corners of the anastomosis with 3-0 silk sutures and also placed two 3-0 silk sutures at the crotch of the anastomosis. It appeared watertight and with good coloring and was in the appropriate orientation without twisting of the small bowel. We copiously irrigated the abdomen with warm saline. Review of the liver showed no lesions. There were no identifiable lesions in the remaining transverse colon or in the sigmoid colon. The contents were dropped back into the abdomen. The omentum was brought in over the incision site, which was reapproximated with interrupted figure-of- eight 0 Polysorb sutures, closing it in one layer in the medial aspect and two layers laterally. Wound was then irrigated and skin dani were utilized to close the skin as well as the port sites. Sterile dressing was applied. The patient tolerated the procedure well, was awoken up in the OR, and transferred to the PACU in stable condition. CC: Dr. Heath Mahoney; Dr. Luis Alfredo Amin * [id number]/[facility] #: [id number] [facility]
--- NOTE | 2016-07-16 17:17 | PN ---
Subjective Date of Service: 07/16/16 Interval History: patient reports he "cant get comfortable". He states he is "ok but just having a rough day". His abdominal pain is better this afternoon, he thinks he is starting to feel better. no fevers or chills. Tolerating ice chip only diet. no flatulence today. Reports he has been trying to be more compliant with IS. Denies SOB or CP. Objective Active Medications: Acetaminophen (Tylenol Tab*) 650 mg PO Q6H PRN PRN Reason: FEVER Atorvastatin Calcium (Lipitor*) 20 mg PO DAILY [facility] Last Admin: 07/16/16 08:14 Dose: 20 mg Dextrose (D50w Syringe 50 Ml*) 12.5 gm IV PUSH .FOR FS < 60 - SS PRN PRN Reason: FS < 60 Heparin Sodium (Porcine) (Heparin Vial(*)) 5,000 units SUBCUT Q8HR [facility] Last Admin: 07/16/16 14:42 Dose: 5,000 units Sodium Chloride (Ns 0.9% 1000 Ml*) 1,000 mls @ 125 mls/hr IV PER RATE [facility] Last Admin: 07/16/16 13:28 Dose: 125 mls/hr Piperacillin Sod/Tazobactam Sod (Zosyn 3.375 Gm In Ns Premix*) 3.375 gm in 100 mls @ 25 mls/hr IVPB Q8H [facility] Last Admin: 07/16/16 14:42 Dose: 25 mls/hr Insulin Glargine (Lantus(*)) 20 units SUBCUT Q12H [facility] Insulin Human Lispro (Humalog*) 0 units SUBCUT Q4H [facility] PRN Reason: Protocol Last Admin: 07/16/16 14:43 Dose: 9 units Metoprolol Succinate (Toprol Xl Tab*) 25 mg PO DAILY [facility] Last Admin: 07/16/16 08:14 Dose: 25 mg Morphine Sulfate (Morphine Inj (Syringe)*) 4 mg IV Q1H PRN PRN Reason: PAIN Last Admin: 07/16/16 08:15 Dose: 4 mg Omeprazole (Prilosec Cap*) 20 mg PO 0730,1630 [facility] Last Admin: 07/16/16 08:14 Dose: 20 mg Ondansetron HCl (Zofran Inj*) 4 mg IV Q6H PRN PRN Reason: NAUSEA Last Admin: 07/16/16 08:15 Dose: 4 mg 07/16/16 07/16/16 07/16/16 05:07 06:07 07:25 Temperature 98.9 F Pulse Rate 84 Respiratory 24 24 21 Rate Blood Pressure 133/47 (mmHg) O2 Sat by Pulse 97 Oximetry 07/16/16 07/16/16 07/16/16 08:15 09:15 12:49 Temperature 98.6 F Pulse Rate 81 Respiratory 22 18 18 Rate Blood Pressure 145/50 (mmHg) O2 Sat by Pulse 92 Oximetry 07/16/16 16:52 Temperature 98.5 F Pulse Rate 82 Respiratory 16 Rate Blood Pressure 129/59 (mmHg) O2 Sat by Pulse 95 Oximetry Oxygen Devices in Use Now: None Appearance: obese male sitting up in a chair watching tv in NAD - A+O x3. Eyes: No Scleral Icterus, PERRLA Ears/Nose/Mouth/Throat: NL Teeth, Lips, Gums, Mucous Membranes Moist Neck: NL Appearance and Movements; NL JVP Respiratory: Symmetrical Chest Expansion and Respiratory Effort Cardiovascular: NL Sounds; No Murmurs; No JVD, RRR, No Edema Abdominal: - - obese, distended, soft. tender around incision site but otherwise nontender. no guarding. hypoactive BS. CD+I dressing Extremities: No Edema, No Clubbing, Cyanosis Skin: No Rash or Ulcers, No Nodules or Sclerosis Neurological: Alert and Oriented x 3, NL Sensation, NL Gait, NL Muscle Strength and Tone Lines/Tubes/Other Access: Clean, Dry and Intact PICC Line Nutrition: Taking PO's - ice chip only Result Diagrams: 07/16/16 07:52 07/16/16 07:52 Additional Lab and Data: Lab Results 07/14/16 07/14/16 07/14/16 Range/Units 13:20 13:20 13:20 WBC 9.4 (3.5-10.8) 10^3/ul RBC 4.18 (4.0-5.4) 10^6/ul Hgb 11.4 L (14.0-18.0) g/dl Hct 34 L (42-52) % MCV 81 (80-94) fL MCH 27 (27-31) pg MCHC 34 (31-36) g/dl RDW 14 (10.5-15) % Plt Count 157 (150-450) 10^3/ul MPV 8 (7.4-10.4) um3 Neut % (Auto) 77.4 (38-83) % Lymph % (Auto) 10.3 L (25-47) % [place] % (Auto) 7.7 (1-9) % Eos % (Auto) 3.9 (0-6) % Baso % (Auto) 0.7 (0-2) % Absolute Neuts (auto) 7.2 (1.5-7.7) 10^3/ul Absolute Lymphs (auto) 1.0 (1.0-4.8) 10^3/ul Absolute Monos (auto) 0.7 (0-0.8) 10^3/ul Absolute Eos (auto) 0.4 (0-0.6) 10^3/ul Absolute Basos (auto) 0.1 (0-0.2) 10^3/ul Absolute Nucleated RBC 0.01 10^3/ul Nucleated RBC % 0.1 Sodium 133 (133-145) mmol/L Potassium 4.5 (3.5-5.0) mmol/L Chloride 102 (101-111) mmol/L Carbon Dioxide 25 (22-32) mmol/L Anion Gap 6 (2-11) mmol/L BUN 25 H (6-24) mg/dL Creatinine 1.31 H (0.67-1.17) mg/dL Est GFR ( Amer) 69.8 (>60) Est GFR (Non-Af Amer) 54.3 (>60) BUN/Creatinine Ratio 19.1 (8-20) Glucose 244 H (70-100) mg/dL Calcium 8.9 (8.6-10.3) mg/dL Total Bilirubin 0.40 (0.2-1.0) mg/dL AST 13 (13-39) U/L ALT 13 (7-52) U/L Alkaline Phosphatase 60 (34-104) U/L Troponin I 0.03 (<0.04) ng/mL C-Reactive Protein 5.72 H (< 5.00) mg/L B-Natriuretic Peptide 54 ( - 100) pg/mL Total Protein 6.3 L (6.4-8.9) g/dL Albumin 3.6 (3.2-5.2) g/dL Globulin 2.7 (2-4) g/dL Albumin/Globulin Ratio 1.3 (1-3) Amylase 28 L (29-103) U/L Lipase 44 (11.0-82.0) U/L Assess/Plan/Problems-Billing Assessment: 71 yo male with PMH of morbid obesity, HTN, Insulin dependent DM 2, CKD who presents to the ED on 07/14/16 with c/o abdominal pain found to have appendiceal obstruction by possibility of colon mass. - Patient Problems (1) Abdominal pain Comment: - Dispo per surgery - POD #1 - s/p diagnostic laparoscopy, open right colectomy - EBL < 100 mls. Pathology pending. - GI to see pt as out pt - will require colonoscopy - low u/o overnight; surgery gave 1 LNS this morning and pt had had good u/o this afternoon. - Fever last night which has resolved today; leukocytosis resolved. - continue zoysn - continue LR @ 100ml/hr - check labs in am. (2) Diabetes Comment: - Poor control - continue to hold glipizide and metformin - continue lispro SS. change lantus to BID. (3) HTN (hypertension) Comment: - controlled. continue metoprolol. hold lisinopril and HCTZ (4) CKD (chronic kidney disease) Current Visit: Yes Comment: - ACUTE ON CHRONIC - appears to be slightly above baseline. Most likely pre-renal. Recheck in am. Send urine sodium/creatinine to check FENA. (5) DVT prophylaxis Comment: - HSQ (6) Full code status Status and Disposition: inpatient. Most likely home when medically stable for DC
[2016-07-16] MEDS ORDERED: Insulin GLARGINE(*) 1 UNITS UNIT SUBCUT SCH (21:00)
[2016-07-16] MEDS: Insulin GLARGINE(*) 1 UNITS UNIT SUBCUT SCH (22:25)
[2016-07-17] MEDS: Insulin LISPRO* 1 UNITS UNIT SUBCUT SCH ×5 (02:29→21:05)
[2016-07-17] MEDS: Morphine INJ* 4 MG/ML 1 ML CARPUJECT IV PRN ×2 (06:33→19:27)
[2016-07-17] MEDS: Ondansetron INJ* 2 MG/ML VIAL IV PRN (06:34)
[2016-07-17] MEDS: Piperac/Tazob 3.375 gm in NS* 3.375 GM/100 ML BAG IVPB SCH ×3 (06:35→21:06)
[2016-07-17] MEDS: Heparin VIAL(*) 5000 UNITS/ML VIAL (FIVE THOUSAND) SUBCUT SCH ×3 (06:37→21:05)
[2016-07-17 06:49] LABS: BUN/Creatinine Ratio 16.6 (8-20); Calcium 7.1 mg/dL (8.6-10.3); EGFR African American 46.3 (>60); Phosphorus 2.4 mg/dL (2.5-5.0); Potassium 4.1 mmol/L (3.5-5.0)
[2016-07-17] MEDS: NS 0.9% 1000 ML* 1,000 ML IV SCH (08:37)
[2016-07-17] MEDS: Insulin GLARGINE(*) 1 UNITS UNIT SUBCUT SCH (08:37)
[2016-07-17] MEDS: Metoprolol Succinate XL TAB* 25 MG PO SCH (08:40)
[2016-07-17] MEDS: Omeprazole CAP* 20 MG PO SCH ×2 (08:40→17:32)
[2016-07-17] MEDS: Atorvastatin* 20 MG TAB PO SCH (08:40)
[2016-07-17] MEDS ORDERED: Dextrose 50% Syringe 50 ML* 25 GM/50 ML SYRINGE IV PUSH PRN (11:35)
[2016-07-17] MEDS ORDERED: Magnesium Sulfate IV* 3 GM in NS 0.9% 100 ML* 100 ML IVPB ONE (12:30)
--- NOTE | 2016-07-17 12:42 | PN ---
Subjective Date of Service: 07/17/16 Interval History: patient reports he feels better today overall and has less pain. Reports he is passing gas. is starting to feel more hungry. Denies any fever or chills. No N/ V. No CP or SOB Has been ambulating around the unit. Objective Active Medications: Acetaminophen (Tylenol Tab*) 650 mg PO Q6H PRN PRN Reason: FEVER Atorvastatin Calcium (Lipitor*) 20 mg PO DAILY [facility] Last Admin: 07/17/16 08:40 Dose: 20 mg Dextrose (D50w Syringe 50 Ml*) 12.5 gm IV PUSH .FOR FS < 60 - SS PRN PRN Reason: FS < 60 Heparin Sodium (Porcine) (Heparin Vial(*)) 5,000 units SUBCUT Q8HR [facility] Last Admin: 07/17/16 06:37 Dose: 5,000 units Piperacillin Sod/Tazobactam Sod (Zosyn 3.375 Gm In Ns Premix*) 3.375 gm in 100 mls @ 25 mls/hr IVPB Q8H [facility] Last Admin: 07/17/16 06:35 Dose: 25 mls/hr Magnesium Sulfate 3 gm/ Sodium (Chloride) 106 mls @ 53 mls/hr IVPB ONCE ONE Stop: 07/17/16 14:29 Sodium Chloride (Ns 0.9% 1000 Ml*) 1,000 mls @ 50 mls/hr IV PER RATE [facility] Insulin Glargine (Lantus(*)) 20 units SUBCUT Q12H [facility] Last Admin: 07/17/16 08:37 Dose: 20 units Insulin Human Lispro (Humalog*) 0 units SUBCUT Q4H [facility] PRN Reason: Protocol Last Admin: 07/17/16 10:54 Dose: 6 units Metoprolol Succinate (Toprol Xl Tab*) 25 mg PO DAILY [facility] Last Admin: 07/17/16 08:40 Dose: 25 mg Morphine Sulfate (Morphine Inj (Syringe)*) 4 mg IV Q1H PRN PRN Reason: PAIN Last Admin: 07/17/16 06:33 Dose: 4 mg Omeprazole (Prilosec Cap*) 20 mg PO 0730,1630 [facility] Last Admin: 07/17/16 08:40 Dose: 20 mg Ondansetron HCl (Zofran Inj*) 4 mg IV Q6H PRN PRN Reason: NAUSEA Last Admin: 07/17/16 06:34 Dose: 4 mg Vital Signs 07/16/16 07/16/16 07/16/16 12:49 16:52 18:28 Temperature 98.6 F 98.5 F Pulse Rate 81 82 Respiratory 18 16 16 Rate Blood Pressure 145/50 129/59 (mmHg) O2 Sat by Pulse 92 95 Oximetry 07/16/16 07/16/16 07/16/16 19:28 19:40 22:00 Temperature 98.8 F Pulse Rate 83 Respiratory 18 16 18 Rate Blood Pressure 135/54 (mmHg) O2 Sat by Pulse 96 Oximetry 07/16/16 07/16/16 07/17/16 22:35 23:35 00:07 Temperature 98.7 F Pulse Rate 93 Respiratory 20 18 24 Rate Blood Pressure 150/71 (mmHg) O2 Sat by Pulse 93 Oximetry 07/17/16 07/17/16 07/17/16 03:29 06:33 07:33 Temperature 98.8 F Pulse Rate 86 Respiratory 16 20 16 Rate Blood Pressure 133/72 (mmHg) O2 Sat by Pulse 90 Oximetry 07/17/16 07/17/16 07:35 08:50 Temperature 98.5 F Pulse Rate 87 Respiratory 18 18 Rate Blood Pressure 150/53 (mmHg) O2 Sat by Pulse 91 Oximetry Oxygen Devices in Use Now: None Appearance: obese male sitting up in a chair in NAD. A+Ox3 Eyes: No Scleral Icterus, PERRLA Ears/Nose/Mouth/Throat: NL Teeth, Lips, Gums, Mucous Membranes Moist Neck: NL Appearance and Movements; NL JVP Respiratory: Symmetrical Chest Expansion and Respiratory Effort, Clear to Auscultation Cardiovascular: NL Sounds; No Murmurs; No JVD, RRR, No Edema Abdominal: - - obese; distended, soft tender around incision site otherwise nontender. CD+I dressing. hypoactive BS Extremities: No Edema, No Clubbing, Cyanosis Neurological: Alert and Oriented x 3 Lines/Tubes/Other Access: Clean, Dry and Intact Peripheral IV Nutrition: Taking PO's - ice chips only Result Diagrams: 07/16/16 07:52 07/17/16 06:18 Additional Lab and Data: Lab Results 07/14/16 07/14/16 07/14/16 Range/Units 13:20 13:20 13:20 WBC 9.4 (3.5-10.8) 10^3/ul RBC 4.18 (4.0-5.4) 10^6/ul Hgb 11.4 L (14.0-18.0) g/dl Hct 34 L (42-52) % MCV 81 (80-94) fL MCH 27 (27-31) pg MCHC 34 (31-36) g/dl RDW 14 (10.5-15) % Plt Count 157 (150-450) 10^3/ul MPV 8 (7.4-10.4) um3 Neut % (Auto) 77.4 (38-83) % Lymph % (Auto) 10.3 L (25-47) % [place] % (Auto) 7.7 (1-9) % Eos % (Auto) 3.9 (0-6) % Baso % (Auto) 0.7 (0-2) % Absolute Neuts (auto) 7.2 (1.5-7.7) 10^3/ul Absolute Lymphs (auto) 1.0 (1.0-4.8) 10^3/ul Absolute Monos (auto) 0.7 (0-0.8) 10^3/ul Absolute Eos (auto) 0.4 (0-0.6) 10^3/ul Absolute Basos (auto) 0.1 (0-0.2) 10^3/ul Absolute Nucleated RBC 0.01 10^3/ul Nucleated RBC % 0.1 Sodium 133 (133-145) mmol/L Potassium 4.5 (3.5-5.0) mmol/L Chloride 102 (101-111) mmol/L Carbon Dioxide 25 (22-32) mmol/L Anion Gap 6 (2-11) mmol/L BUN 25 H (6-24) mg/dL Creatinine 1.31 H (0.67-1.17) mg/dL Est GFR ( Amer) 69.8 (>60) Est GFR (Non-Af Amer) 54.3 (>60) BUN/Creatinine Ratio 19.1 (8-20) Glucose 244 H (70-100) mg/dL Calcium 8.9 (8.6-10.3) mg/dL Total Bilirubin 0.40 (0.2-1.0) mg/dL AST 13 (13-39) U/L ALT 13 (7-52) U/L Alkaline Phosphatase 60 (34-104) U/L Troponin I 0.03 (<0.04) ng/mL C-Reactive Protein 5.72 H (< 5.00) mg/L B-Natriuretic Peptide 54 ( - 100) pg/mL Total Protein 6.3 L (6.4-8.9) g/dL Albumin 3.6 (3.2-5.2) g/dL Globulin 2.7 (2-4) g/dL Albumin/Globulin Ratio 1.3 (1-3) Amylase 28 L (29-103) U/L Lipase 44 (11.0-82.0) U/L Assess/Plan/Problems-Billing Assessment: 71 yo male with PMH of morbid obesity, HTN, Insulin dependent DM 2, CKD who presents to the ED on 07/14/16 with c/o abdominal pain found to have appendiceal obstruction by possibility of colon mass. - Patient Problems (1) Abdominal pain Comment: - Dispo per surgery - POD #2 - s/p diagnostic laparoscopy, open right colectomy - improving daily - EBL < 100 mls. Pathology pending. - GI to see pt as out pt - will require colonoscopy - afebrile - continue zoysn until path returns - Ice chip only diet; continue LR @ 50ml/hr - check labs in am. (2) Electrolyte abnormality Comment: - replace magnesium. recheck lytes in am. (3) Diabetes Comment: - Poor control but slowly improving - continue to hold glipizide and metformin - continue lispro SS. - Increase Lantus to 28 units this evening - plan to switch pt back to once daily dosing in the evening. Total lantus today will be 48u after this evenings dose as pt was BID (At baseline pt is on 120u NPH/24hrs - recommendations are to give 80% of dosage when converting NPH-Lantus, with the pt being NPO will cut that dose in half). Provider tomorrow should titrate up slowly if patients blood sugars tolerate. (4) HTN (hypertension) Comment: - controlled. continue metoprolol. hold lisinopril and HCTZ (5) CKD (chronic kidney disease) Current Visit: Yes Comment: - ACUTE ON CHRONIC - appears to be slightly above baseline. Trending down today. FENA 0.2% pre- renal. Recheck in am. (6) DVT prophylaxis Comment: - HSQ (7) Full code status Status and Disposition: inpatient. Most likely home when medically stable for DC
[2016-07-17] MEDS ORDERED: NS 0.9% 1000 ML* 1,000 ML IV SCH ×3 (12:45→13:45)
--- NOTE | 2016-07-17 13:16 | PN ---
Progress Note - Progress Note SOAP: Subjective: pt seen and examined. c/o abdo pain, no flatus, thirsty Objective: af vss, UO good abdo: obese, tender diffusely, but softer overall dressing intact no calf tenderness path P Assessment: POD2 r colectomy, improving Plan: OOB glucose control labs in am Clear diet abx until Pathology returned Change IVF
[2016-07-17] MEDS ORDERED: Potassium Phosphate IV* 15 MMOLE in NS 0.9% 250 ML* 250 ML IVPB ONE (14:00)
[2016-07-17] MEDS ORDERED: D5W 1/2 NS 1000 ML BAG* 1,000 ML IV SCH (14:00)
[2016-07-17] MEDS ORDERED: Insulin LISPRO* 1 UNITS UNIT SUBCUT SCH (16:30)
[2016-07-17] MEDS ORDERED: oxyCODONE/Acetamin 5/325 MG* TAB PO PRN (17:57)
[2016-07-17] MEDS ORDERED: Insulin GLARGINE(*) 1 UNITS UNIT SUBCUT SCH (21:00)
[2016-07-18] MEDS: oxyCODONE/Acetamin 5/325 MG* TAB PO PRN ×2 (05:34→20:52)
[2016-07-18] MEDS: Heparin VIAL(*) 5000 UNITS/ML VIAL (FIVE THOUSAND) SUBCUT SCH ×3 (05:36→23:09)
[2016-07-18] MEDS: Piperac/Tazob 3.375 gm in NS* 3.375 GM/100 ML BAG IVPB SCH ×3 (05:36→23:09)
[2016-07-18 06:35] LABS: Hematocrit 25 % (42-52); Hemoglobin 8.4 g/dl (14.0-18.0); Mean Corpuscular HGB Conc 34 g/dl (31-36); Mean Corpuscular Hemoglobin 28 pg (27-31); Mean Corpuscular Volume 82 fL (80-94); Mean Platelet Volume 8 um3 (7.4-10.4); Red Blood Count 3.05 10^6/ul (4.0-5.4); Red Cell Distribution Width 15 % (10.5-15); White Blood Count 6.2 10^3/ul (3.5-10.8)
[2016-07-18 06:50] LABS: BUN/Creatinine Ratio 18.8 (8-20); Calcium 6.8 mg/dL (8.6-10.3); EGFR African American 51.7 (>60); EGFR Non-African American 40.2 (>60); Magnesium 1.6 mg/dL (1.9-2.7); Phosphorus 1.9 mg/dL (2.5-5.0); Potassium 3.8 mmol/L (3.5-5.0)
[2016-07-18] MEDS: Atorvastatin* 20 MG TAB PO SCH (08:09)
[2016-07-18] MEDS: Metoprolol Succinate XL TAB* 25 MG PO SCH (08:10)
[2016-07-18] MEDS: Insulin LISPRO* 1 UNITS UNIT SUBCUT SCH ×6 (08:10→20:55)
[2016-07-18] MEDS: Omeprazole CAP* 20 MG PO SCH ×2 (08:10→18:20)
[2016-07-18] MEDS ORDERED: NS 0.9% 100 ML* 100 ML ONE (09:17)
[2016-07-18] MEDS: Magnesium Sulfate IV* 3 GM in NS 0.9% 100 ML* 100 ML IVPB ONE ×2 (09:19→10:50)
--- NOTE | 2016-07-18 11:11 | PN ---
Progress Note - Progress Note SOAP: Subjective: pt seen and examined. Did not get very good sleep last night. Abdominal pain, Pos. flatus and BM Objective: af vss, UO good abdo: obese, tender diffusely, but softer overall dressing removed, no redness no calf tenderness labs reviewed Path reviewed but not yet with pt Assessment: POD2 r colectomy; adenoCa. T1N0 Plan: OOB glucose control advance diet abx for 2 more days d/c IVF
[2016-07-18] MEDS: Potassium Phosphate IV* 15 MMOLE in NS 0.9% 250 ML* 250 ML IVPB ONE ×2 (11:13→13:17)
[2016-07-18] MEDS ORDERED: Magnesium Sulfate 1 GM IV* 1 GM/100 ML BAG IV ONE (11:30)
[2016-07-18] MEDS ORDERED: Potassium Phosphate IV* 15 MMOLE in NS 0.9% 250 ML* 250 ML IVPB ONE (12:00)
--- NOTE | 2016-07-18 12:52 | PN ---
Subjective Date of Service: 07/18/16 Interval History: Patient seen and examined at bedside. He is sitting on the edge of the bed. He denies fever/chills, CP, SOB. Reports some abdominal discomfort but denies n/v. He is hoping to advance his diet. No other nursing concerns at this time. Family History: Unchanged from Admission Social History: Unchanged from Admission Past Medical History: Unchanged from Admission Objective Active Medications: Acetaminophen (Tylenol Tab*) 650 mg PO Q6H PRN PRN Reason: FEVER Atorvastatin Calcium (Lipitor*) 20 mg PO DAILY [facility] Last Admin: 07/18/16 08:09 Dose: 20 mg Dextrose (D50w Syringe 50 Ml*) 12.5 gm IV PUSH .FOR FS < 60 - SS PRN PRN Reason: FS < 60 Heparin Sodium (Porcine) (Heparin Vial(*)) 5,000 units SUBCUT Q8HR [facility] Last Admin: 07/18/16 05:36 Dose: 5,000 units Piperacillin Sod/Tazobactam Sod (Zosyn 3.375 Gm In Ns Premix*) 3.375 gm in 100 mls @ 25 mls/hr IVPB Q8H [facility] Last Admin: 07/18/16 05:36 Dose: 25 mls/hr Potassium Phosphate 15 mmole/ (Sodium Chloride) 255 mls @ 42 mls/hr IVPB ONCE ONE Stop: 07/18/16 14:50 Potassium Phosphate 15 mmole/ (Sodium Chloride) 255 mls @ 42 mls/hr IVPB ONCE ONE Stop: 07/18/16 18:04 Insulin Glargine (Lantus(*)) 35 units SUBCUT Q24H [facility] Insulin Human Lispro (Humalog*) 0 units SUBCUT ACHS [facility] PRN Reason: Protocol Last Admin: 07/18/16 11:43 Dose: 6 units Insulin Human Lispro (Humalog*) 0 units SUBCUT AC [facility] PRN Reason: Protocol Metoprolol Succinate (Toprol Xl Tab*) 25 mg PO DAILY [facility] Last Admin: 07/18/16 08:10 Dose: 25 mg Morphine Sulfate (Morphine Inj (Syringe)*) 4 mg IV Q1H PRN PRN Reason: PAIN Last Admin: 07/17/16 19:27 Dose: 4 mg Omeprazole (Prilosec Cap*) 20 mg PO 0730,1630 [facility] Last Admin: 07/18/16 08:10 Dose: 20 mg Ondansetron HCl (Zofran Inj*) 4 mg IV Q6H PRN PRN Reason: NAUSEA Last Admin: 07/17/16 06:34 Dose: 4 mg Oxycodone/Acetaminophen (Percocet 5/325 Tab*) 1 tab PO Q4H PRN PRN Reason: PAIN Oxycodone/Acetaminophen (Percocet 5/325 Tab*) 2 tab PO Q4H PRN PRN Reason: PAIN - SEVERE Last Admin: 07/18/16 05:34 Dose: 2 tab Vital Signs 07/17/16 07/17/16 07/17/16 16:28 19:27 19:33 Temperature 98.8 F 98.5 F Pulse Rate 78 78 Respiratory 16 16 20 Rate Blood Pressure 153/48 137/65 (mmHg) O2 Sat by Pulse 97 94 Oximetry 07/17/16 07/17/16 07/17/16 20:00 20:27 23:31 Temperature 98.4 F Pulse Rate 75 Respiratory 18 16 18 Rate Blood Pressure 147/57 (mmHg) O2 Sat by Pulse 95 Oximetry 07/18/16 07/18/16 07/18/16 03:31 05:34 07:34 Temperature 98.1 F Pulse Rate 74 Respiratory 18 18 18 Rate Blood Pressure 134/64 (mmHg) O2 Sat by Pulse 96 Oximetry 07/18/16 07/18/16 07/18/16 07:48 08:00 11:58 Temperature 98.2 F 98.0 F Pulse Rate 83 59 Respiratory 18 18 18 Rate Blood Pressure 129/61 107/52 (mmHg) O2 Sat by Pulse 94 94 Oximetry Oxygen Devices in Use Now: None Appearance: Male patient, sitting on edge of bed, in NAD, pleasant. Eyes: PERRLA Ears/Nose/Mouth/Throat: Clear Oropharnyx, Mucous Membranes Moist Neck: NL Appearance and Movements; NL JVP Respiratory: Symmetrical Chest Expansion and Respiratory Effort, Clear to Auscultation Cardiovascular: NL Sounds; No Murmurs; No JVD, RRR Abdominal: - - obese, distended. Tender around dani and midline abdominal dressing, dressing c/d/i. BS positive x all 4 quadrants Extremities: No Edema Skin: No Rash or Ulcers Neurological: Alert and Oriented x 3 Lines/Tubes/Other Access: Clean, Dry and Intact Peripheral IV Nutrition: Taking PO's Result Diagrams: 07/18/16 05:48 07/18/16 05:48 Additional Lab and Data: Lab Results 07/14/16 07/14/16 07/14/16 Range/Units 13:20 13:20 13:20 WBC 9.4 (3.5-10.8) 10^3/ul RBC 4.18 (4.0-5.4) 10^6/ul Hgb 11.4 L (14.0-18.0) g/dl Hct 34 L (42-52) % MCV 81 (80-94) fL MCH 27 (27-31) pg MCHC 34 (31-36) g/dl RDW 14 (10.5-15) % Plt Count 157 (150-450) 10^3/ul MPV 8 (7.4-10.4) um3 Neut % (Auto) 77.4 (38-83) % Lymph % (Auto) 10.3 L (25-47) % [place] % (Auto) 7.7 (1-9) % Eos % (Auto) 3.9 (0-6) % Baso % (Auto) 0.7 (0-2) % Absolute Neuts (auto) 7.2 (1.5-7.7) 10^3/ul Absolute Lymphs (auto) 1.0 (1.0-4.8) 10^3/ul Absolute Monos (auto) 0.7 (0-0.8) 10^3/ul Absolute Eos (auto) 0.4 (0-0.6) 10^3/ul Absolute Basos (auto) 0.1 (0-0.2) 10^3/ul Absolute Nucleated RBC 0.01 10^3/ul Nucleated RBC % 0.1 Sodium 133 (133-145) mmol/L Potassium 4.5 (3.5-5.0) mmol/L Chloride 102 (101-111) mmol/L Carbon Dioxide 25 (22-32) mmol/L Anion Gap 6 (2-11) mmol/L BUN 25 H (6-24) mg/dL Creatinine 1.31 H (0.67-1.17) mg/dL Est GFR ( Amer) 69.8 (>60) Est GFR (Non-Af Amer) 54.3 (>60) BUN/Creatinine Ratio 19.1 (8-20) Glucose 244 H (70-100) mg/dL Calcium 8.9 (8.6-10.3) mg/dL Total Bilirubin 0.40 (0.2-1.0) mg/dL AST 13 (13-39) U/L ALT 13 (7-52) U/L Alkaline Phosphatase 60 (34-104) U/L Troponin I 0.03 (<0.04) ng/mL C-Reactive Protein 5.72 H (< 5.00) mg/L B-Natriuretic Peptide 54 ( - 100) pg/mL Total Protein 6.3 L (6.4-8.9) g/dL Albumin 3.6 (3.2-5.2) g/dL Globulin 2.7 (2-4) g/dL Albumin/Globulin Ratio 1.3 (1-3) Amylase 28 L (29-103) U/L Lipase 44 (11.0-82.0) U/L Assess/Plan/Problems-Billing Assessment: 71 yo male with PMH of morbid obesity, HTN, Insulin dependent DM 2, CKD who presents to the ED on 07/14/16 with c/o abdominal pain found to have appendiceal obstruction by possibility of colon mass. - Patient Problems (1) Abdominal pain Code(s): R10.9 - UNSPECIFIED ABDOMINAL PAIN Comment: - Dispo per surgery - POD #3 - s/p diagnostic laparoscopy, open right colectomy - Improving daily, now on full liquids - EBL < 100 mls. 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 - GI to see pt as outpatient - will require colonoscopy - Afebrile, continue Zosyn x 2 more days, per surgery - Started clears, now advanced to fulls, IVF d/c'd by surgery (2) Electrolyte abnormality Code(s): E87.8 - OTH DISORDERS OF ELECTROLYTE AND FLUID BALANCE, NEC Comment: - Magnesium and phosphorus repletion. - Recheck in AM. (3) Diabetes Code(s): E11.9 - TYPE 2 DIABETES MELLITUS WITHOUT COMPLICATIONS Comment: - Poor control but slowly improving - Continue to hold glipizide and metformin - Continue lispro SS. - Increase Lantus from 28 to 35 units this evening (at baseline pt is on 120u NPH/24hrs - recommendations are to give 80% of dosage when converting NPH to Lantus). - Continue slow upward titration of Lantus and monitor patient's FSBG and ability to tolerate. (4) HTN (hypertension) Code(s): I10 - ESSENTIAL (PRIMARY) HYPERTENSION Comment: - Normotensive. Continue metoprolol. - Hold lisinopril and HCTZ in the presence of acute on chronic kidney injury. (5) CKD (chronic kidney disease) Code(s): N18.9 - CHRONIC KIDNEY DISEASE, UNSPECIFIED Comment: - ACUTE ON CHRONIC - Patient appears to be above baseline but is improving. FENA 0.2% pre-renal. - Recheck BMP in AM. (6) DVT prophylaxis Comment: - SQ Heparin (7) Full code status Code(s): Z78.9 - OTHER SPECIFIED HEALTH STATUS Status and Disposition: Inpatient. Dispo per surgery. Most likely home when medically stable for DC
[2016-07-18] MEDS: Calcium Carbonate TAB* 1250 MG (CALCIUM 500 MG) PO SCH ×2 (14:56→20:53)
[2016-07-18] MEDS ORDERED: Insulin GLARGINE(*) 1 UNITS UNIT SUBCUT SCH ×2 (20:00)
[2016-07-18] MEDS: Insulin GLARGINE(*) 1 UNITS UNIT SUBCUT SCH (20:54)
[2016-07-18] MEDS ORDERED: NS 0.9% 250 ML* 250 ML ONE (21:13)
[2016-07-19] MEDS: oxyCODONE/Acetamin 5/325 MG* TAB PO PRN ×2 (01:51→12:49)
[2016-07-19] MEDS: Piperac/Tazob 3.375 gm in NS* 3.375 GM/100 ML BAG IVPB SCH ×4 (04:37→21:57)
[2016-07-19] MEDS ORDERED: Diltiazem IV* 5 MG/ML 5 ML VIAL (for loading dose/IV Push) (25 MG) IV SLOW PU ONE (06:09)
[2016-07-19] MEDS ORDERED: Heparin DRIP 25,000 UNITS(*) 25,000 UNITS/500 ML BAG IVPB SCH (06:15)
--- NOTE | 2016-07-19 06:17 | PN ---
Progress Note - Progress Note Note: Nursing called reporting pulse in the 60s, irregular. ECG requested, showed AFIB /RVR rate 131. Elizabeth Muniz MD surgery apprized & approved heparinization. Nursing reports asymptomatic, no HX AFIB. Assessment: plan new onset AFIB w/ RVR : transfer to telemetry : troponin Q6H x2 : diltiazem bolus/GTT : supplemental oxygen : heparin GTT (D/C heparin SQ not yet given this AM) : supportive care
[2016-07-19] MEDS: Heparin VIAL(*) 5000 UNITS/ML VIAL (FIVE THOUSAND) SUBCUT SCH (06:31)
[2016-07-19 06:37] LABS: Hematocrit 28 % (42-52); Hemoglobin 8.7 g/dl (14.0-18.0); Mean Corpuscular HGB Conc 31 g/dl (31-36); Mean Corpuscular Hemoglobin 27 pg (27-31); Mean Corpuscular Volume 87 fL (80-94); Mean Platelet Volume 8 um3 (7.4-10.4); Red Blood Count 3.17 10^6/ul (4.0-5.4); Red Cell Distribution Width 16 % (10.5-15); White Blood Count 5.1 10^3/ul (3.5-10.8)
[2016-07-19] MEDS ORDERED: Diltiazem IV VIAL* 125 MG in NS 0.9% 100 ML* 100 ML IVPB SCH (07:00)
[2016-07-19] MEDS ORDERED: Heparin VIAL(*) 5000 UNITS/ML VIAL (FIVE THOUSAND) IV SCH (07:00)
[2016-07-19 07:30] LABS: Calcium 6.5 mg/dL (8.6-10.3); EGFR African American 61.1 (>60); EGFR Non-African American 47.5 (>60); Magnesium 2.1 mg/dL (1.9-2.7); Phosphorus 3.1 mg/dL (2.5-5.0)
[2016-07-19] MEDS ORDERED: Diltiazem DRIP* 100 MG/100 ML ADDV.BAG IVPB SCH (07:30)
[2016-07-19 07:51] LABS: Troponin I 0.04 ng/mL (<0.04)
[2016-07-19] MEDS: Metoprolol Succinate XL TAB* 25 MG PO SCH (08:09)
[2016-07-19] MEDS: Atorvastatin* 20 MG TAB PO SCH (08:10)
[2016-07-19] MEDS: Calcium Carbonate TAB* 1250 MG (CALCIUM 500 MG) PO SCH ×2 (08:10→20:46)
[2016-07-19] MEDS: Omeprazole CAP* 20 MG PO SCH ×2 (08:10→16:25)
[2016-07-19] MEDS: Insulin LISPRO* 1 UNITS UNIT SUBCUT SCH ×7 (08:57→20:47)
--- NOTE | 2016-07-19 10:17 | PN ---
Subjective Date of Service: 07/19/16 Interval History: Patient seen and examined at bedside. He is upset because he feels like the treatment for his atrial fib "is overkill." He denies CP, SOB or feeling out of the ordinary. He is very concerned regarding his pathology results. He states, "I feel fine. I just want to know what's going on." No other complaints; pt reports mild abdominal discomfort, denies n/v. Telemetry: Atrial fib 100s Family History: Unchanged from Admission Social History: Unchanged from Admission Past Medical History: Unchanged from Admission Objective Active Medications: Acetaminophen (Tylenol Tab*) 650 mg PO Q6H PRN PRN Reason: FEVER Atorvastatin Calcium (Lipitor*) 20 mg PO DAILY [facility] Last Admin: 07/19/16 08:10 Dose: 20 mg Calcium Carbonate (Calcium Carbonate Tab*) 1,250 mg PO BID [facility] Last Admin: 07/19/16 08:10 Dose: 1,250 mg Dextrose (D50w Syringe 50 Ml*) 12.5 gm IV PUSH .FOR FS < 60 - SS PRN PRN Reason: FS < 60 Heparin Sodium (Porcine) (Heparin Vial(*)) 0 units IV .PER PROTOCOL [facility] Last Admin: 07/19/16 08:03 Dose: 7,500 units Piperacillin Sod/Tazobactam Sod (Zosyn 3.375 Gm In Ns Premix*) 3.375 gm in 100 mls @ 200 mls/hr IVPB Q6H [facility] Last Admin: 07/19/16 04:37 Dose: 200 mls/hr Heparin Sodium/Dextrose (Heparin Drip 25,000 Units(*)) 25,000 units in 500 mls @ 0 mls/hr IVPB .(INITIAL RATE) [facility]; Per Protocol PRN Reason: Protocol Last Admin: 07/19/16 08:03 Dose: 28 mls/hr Diltiazem HCl (Cardizem Iv Advan*) 100 mg in 100 mls @ 5 mls/hr IVPB .PER RATE [facility] PRN Reason: 5 MG/HR Last Admin: 07/19/16 08:03 Dose: 5 mls/hr Calcium Gluconate 1 gm/ Sodium (Chloride) 60 mls @ 120 mls/hr IVPB Q30M [facility] Stop: 07/19/16 10:59 Insulin Glargine (Lantus(*)) 48 units SUBCUT Q24H [facility] Last Admin: 07/18/16 20:54 Dose: 48 units Insulin Human Lispro (Humalog*) 0 units SUBCUT ACHS [facility] PRN Reason: Protocol Last Admin: 07/19/16 08:57 Dose: Not Given Insulin Human Lispro (Humalog*) 0 units SUBCUT AC [facility] PRN Reason: Protocol Last Admin: 07/19/16 09:15 Dose: Not Given Metoprolol Succinate (Toprol Xl Tab*) 25 mg PO DAILY [facility] Last Admin: 07/19/16 08:09 Dose: 25 mg Morphine Sulfate (Morphine Inj (Syringe)*) 4 mg IV Q1H PRN PRN Reason: PAIN Last Admin: 07/17/16 19:27 Dose: 4 mg Omeprazole (Prilosec Cap*) 20 mg PO 0730,1630 [facility] Last Admin: 07/19/16 08:10 Dose: 20 mg Ondansetron HCl (Zofran Inj*) 4 mg IV Q6H PRN PRN Reason: NAUSEA Last Admin: 07/17/16 06:34 Dose: 4 mg Oxycodone/Acetaminophen (Percocet 5/325 Tab*) 1 tab PO Q4H PRN PRN Reason: PAIN Oxycodone/Acetaminophen (Percocet 5/325 Tab*) 2 tab PO Q4H PRN PRN Reason: PAIN - SEVERE Last Admin: 07/19/16 01:51 Dose: 2 tab Vital Signs 07/18/16 07/18/16 07/18/16 11:58 15:41 19:35 Temperature 98.0 F 98.4 F Pulse Rate 59 65 Respiratory 18 24 18 Rate Blood Pressure 107/52 119/75 (mmHg) O2 Sat by Pulse 94 96 Oximetry 07/18/16 07/18/16 07/18/16 19:44 20:52 22:52 Temperature 98.7 F Pulse Rate 103 Respiratory 20 18 16 Rate Blood Pressure 139/54 (mmHg) O2 Sat by Pulse Oximetry 07/18/16 07/19/16 07/19/16 23:22 01:51 03:51 Temperature 97.7 F Pulse Rate 58 Respiratory 16 20 16 Rate Blood Pressure 93/64 (mmHg) O2 Sat by Pulse 95 Oximetry 07/19/16 07/19/16 07/19/16 04:27 06:21 06:53 Temperature 98.7 F 97.6 F 97.6 F Pulse Rate 79 100 81 Respiratory 18 19 19 Rate Blood Pressure 132/68 133/65 144/75 (mmHg) O2 Sat by Pulse 95 97 99 Oximetry Oxygen Devices in Use Now: None Appearance: Male patient, lying in bed, in NAD Eyes: PERRLA Ears/Nose/Mouth/Throat: Mucous Membranes Moist Neck: NL Appearance and Movements; NL JVP Respiratory: Symmetrical Chest Expansion and Respiratory Effort, Clear to Auscultation Cardiovascular: - - irregularly irregular rate/rhythm, no JVD noted, no murmurs noted Abdominal: - - BS present, abd obese, tender at incision site and mildly distended Extremities: No Clubbing, Cyanosis Skin: No Rash or Ulcers, - - dressing to abd c/d/i, incision with dani well approximated with no streaking or drainage Neurological: Alert and Oriented x 3 Lines/Tubes/Other Access: Clean, Dry and Intact Peripheral IV Result Diagrams: 07/19/16 06:23 07/19/16 06:23 Additional Lab and Data: Lab Results 07/14/16 07/14/16 07/14/16 Range/Units 13:20 13:20 13:20 WBC 9.4 (3.5-10.8) 10^3/ul RBC 4.18 (4.0-5.4) 10^6/ul Hgb 11.4 L (14.0-18.0) g/dl Hct 34 L (42-52) % MCV 81 (80-94) fL MCH 27 (27-31) pg MCHC 34 (31-36) g/dl RDW 14 (10.5-15) % Plt Count 157 (150-450) 10^3/ul MPV 8 (7.4-10.4) um3 Neut % (Auto) 77.4 (38-83) % Lymph % (Auto) 10.3 L (25-47) % [place] % (Auto) 7.7 (1-9) % Eos % (Auto) 3.9 (0-6) % Baso % (Auto) 0.7 (0-2) % Absolute Neuts (auto) 7.2 (1.5-7.7) 10^3/ul Absolute Lymphs (auto) 1.0 (1.0-4.8) 10^3/ul Absolute Monos (auto) 0.7 (0-0.8) 10^3/ul Absolute Eos (auto) 0.4 (0-0.6) 10^3/ul Absolute Basos (auto) 0.1 (0-0.2) 10^3/ul Absolute Nucleated RBC 0.01 10^3/ul Nucleated RBC % 0.1 Sodium 133 (133-145) mmol/L Potassium 4.5 (3.5-5.0) mmol/L Chloride 102 (101-111) mmol/L Carbon Dioxide 25 (22-32) mmol/L Anion Gap 6 (2-11) mmol/L BUN 25 H (6-24) mg/dL Creatinine 1.31 H (0.67-1.17) mg/dL Est GFR ( Amer) 69.8 (>60) Est GFR (Non-Af Amer) 54.3 (>60) BUN/Creatinine Ratio 19.1 (8-20) Glucose 244 H (70-100) mg/dL Calcium 8.9 (8.6-10.3) mg/dL Total Bilirubin 0.40 (0.2-1.0) mg/dL AST 13 (13-39) U/L ALT 13 (7-52) U/L Alkaline Phosphatase 60 (34-104) U/L Troponin I 0.03 (<0.04) ng/mL C-Reactive Protein 5.72 H (< 5.00) mg/L B-Natriuretic Peptide 54 ( - 100) pg/mL Total Protein 6.3 L (6.4-8.9) g/dL Albumin 3.6 (3.2-5.2) g/dL Globulin 2.7 (2-4) g/dL Albumin/Globulin Ratio 1.3 (1-3) Amylase 28 L (29-103) U/L Lipase 44 (11.0-82.0) U/L Assess/Plan/Problems-Billing Assessment: 71 yo male with PMH of morbid obesity, HTN, Insulin dependent DM 2, CKD who presents to the ED on 07/14/16 with c/o abdominal pain found to have appendiceal obstruction by possibility of colon mass. - Patient Problems (1) Atrial fibrillation Code(s): I48.91 - UNSPECIFIED ATRIAL FIBRILLATION Comment: Atrial fibrillation with RVR overnight in 130s No previous history of afib; patient asymptomatic and denies CP, SOB Initial troponin 0.04, repeat trop pending Cardiology consult Continue diltiazem and heparin gtts (2) Abdominal pain Code(s): R10.9 - UNSPECIFIED ABDOMINAL PAIN Comment: - Dispo per surgery - POD #4 - s/p diagnostic laparoscopy, open right colectomy - Improving daily, now on full liquids - EBL < 100 mls. 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 - GI to see pt as outpatient - will require colonoscopy - Afebrile, continue Zosyn x 1 more day, per surgery - Full liquids, continue to advance diet per surgery (3) Electrolyte abnormality Code(s): E87.8 - OTH DISORDERS OF ELECTROLYTE AND FLUID BALANCE, NEC Comment: - Ionized calcium 2.78, calcium gluconate ordered, recheck Ca+ after repletion - Magnesium and phosphorus WNL (4) Diabetes Code(s): E11.9 - TYPE 2 DIABETES MELLITUS WITHOUT COMPLICATIONS Comment: - Poor control but slowly improving - Continue to hold glipizide and metformin - Continue lispro SS and have added carb coverage. - Lantus currently at 48 units, continue to trend BG (at baseline pt is on 120u NPH/24hrs; recommendations are to give 80% of dosage when converting NPH to Lantus). - Continue slow upward titration of Lantus and monitor patient's FSBG and ability to tolerate. (5) HTN (hypertension) Code(s): I10 - ESSENTIAL (PRIMARY) HYPERTENSION Comment: - Mostly normotensive. Continue metoprolol. Patient currently on diltiazem for afib. - Hold lisinopril and HCTZ in the presence of acute on chronic kidney injury. (6) CKD (chronic kidney disease) Code(s): N18.9 - CHRONIC KIDNEY DISEASE, UNSPECIFIED Comment: - ACUTE ON CHRONIC - Creatinine improving and appears to be closer to baseline. FENA 0.2% pre- renal. - Continue to trend BMP. (7) DVT prophylaxis Comment: - Heparin gtt (8) Full code status Code(s): Z78.9 - OTHER SPECIFIED HEALTH STATUS Status and Disposition: Inpatient. Dispo per surgery. Most likely home when medically stable for DC
[2016-07-19] MEDS: Calcium Gluconate INJ* 1 GM in NS 0.9% 50 ML* 50 ML IVPB SCH ×2 (10:23→13:35)
[2016-07-19] MEDS ORDERED: Amiodarone 150 MG IVPREMIX* 150 MG/100 ML BAG IV ONE (10:37)
--- NOTE | 2016-07-19 12:01 | CONSULT ---
Subjective Date of Service: 07/19/16 Interval History: Admission Date: 07/14/16 Provider: Hospitalist service PRIMARY CARE PROVIDER: Dr. Mahoney CC: post-abdominal surgery Afib Reason for consult: Afib HISTORY OF PRESENT ILLNESS: Mr. Ochoa is a 71-year-old male with a history of diabetes, hypertension, obesity admitted with abdominal pain and is now s/p surgery POD 4 right colectomy of suspected cancer. This AM was noted to have an irregular pulse on vital signs this AM and subsequently found with rapid AFib and transferred to telemetry. He denies any CP, dyspnea, lightheadedness, palpitations or syncope. He was rate controlled on cardizem and anticoagulated with IV heparin infusion. He failed to chemically cardiovert with IV amiodarone 150 mg x 1 slow bolus. I offered an electrical cardioversion so that anticoagulation in the short term might be deferred and he declined and opted instead for oral rate control and anticoagulation (if ok with surgery) and follow up as outpatient to address PAST MEDICAL HISTORY 1. History of diabetes type 2. 2. History of chronic kidney disease stage 3 due to diabetes. 3. History of hypertension. 4. Status post cholecystectomy. 5. History of gastritis on endoscopy in 2010. MEDICATIONS: Include: 1. NPH insulin 80 units in the morning and 40 units at night. 2. Hydrochlorothiazide 25 mg daily. 3. Glipizide 5 mg b.i.d. 4. Simvastatin 40 mg daily. 5. Omeprazole 20 mg b.i.d. 6. Lisinopril 40 mg daily. 7. Metformin 1000 mg at bedtime and 1500 mg in the a.m. 8. Metoprolol succinate 25 mg daily. ALLERGIES: No known drug allergies. FAMILY HISTORY: Positive for father who at the age of 84 as a consequence of COPD. Mother with history of heart disease who of pancreatic cancer at the age of 93. SOCIAL HISTORY: The patient denies any tobacco, alcohol, or drug use. 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 His surrogate is his , Ava Ochoa. Medications Active Medications: Acetaminophen (Tylenol Tab*) 650 mg PO Q6H PRN PRN Reason: FEVER Atorvastatin Calcium (Lipitor*) 20 mg PO DAILY [facility] Last Admin: 07/19/16 08:10 Dose: 20 mg Calcium Carbonate (Calcium Carbonate Tab*) 1,250 mg PO BID [facility] Last Admin: 07/19/16 08:10 Dose: 1,250 mg Dextrose (D50w Syringe 50 Ml*) 12.5 gm IV PUSH .FOR FS < 60 - SS PRN PRN Reason: FS < 60 Diltiazem HCl (Cardizem Tab*) 30 mg PO Q6HR [facility] Heparin Sodium (Porcine) (Heparin Vial(*)) 0 units IV .PER PROTOCOL [facility] Last Admin: 07/19/16 08:03 Dose: 7,500 units Piperacillin Sod/Tazobactam Sod (Zosyn 3.375 Gm In Ns Premix*) 3.375 gm in 100 mls @ 200 mls/hr IVPB Q6H [facility] Last Admin: 07/19/16 04:37 Dose: 200 mls/hr Heparin Sodium/Dextrose (Heparin Drip 25,000 Units(*)) 25,000 units in 500 mls @ 0 mls/hr IVPB .(INITIAL RATE) [facility]; Per Protocol PRN Reason: Protocol Last Admin: 07/19/16 08:03 Dose: 28 mls/hr Insulin Glargine (Lantus(*)) 48 units SUBCUT Q24H [facility] Last Admin: 07/18/16 20:54 Dose: 48 units Insulin Human Lispro (Humalog*) 0 units SUBCUT ACHS [facility] PRN Reason: Protocol Last Admin: 07/19/16 08:57 Dose: Not Given Insulin Human Lispro (Humalog*) 0 units SUBCUT AC [facility] PRN Reason: Protocol Last Admin: 07/19/16 09:15 Dose: Not Given Metoprolol Succinate (Toprol Xl Tab*) 25 mg PO DAILY [facility] Last Admin: 07/19/16 08:09 Dose: 25 mg Morphine Sulfate (Morphine Inj (Syringe)*) 4 mg IV Q1H PRN PRN Reason: PAIN Last Admin: 07/17/16 19:27 Dose: 4 mg Omeprazole (Prilosec Cap*) 20 mg PO 0730,1630 [facility] Last Admin: 07/19/16 08:10 Dose: 20 mg Ondansetron HCl (Zofran Inj*) 4 mg IV Q6H PRN PRN Reason: NAUSEA Last Admin: 07/17/16 06:34 Dose: 4 mg Oxycodone/Acetaminophen (Percocet 5/325 Tab*) 1 tab PO Q4H PRN PRN Reason: PAIN Oxycodone/Acetaminophen (Percocet 5/325 Tab*) 2 tab PO Q4H PRN PRN Reason: PAIN - SEVERE Last Admin: 07/19/16 01:51 Dose: 2 tab Home Medications: Glipizide 5 mg PO BID 05/19/14 [History Confirmed 07/14/16] Hydrochlorothiazide 25 mg PO DAILY 05/19/14 [History Confirmed 07/14/16] Lisinopril 40 mg PO DAILY 05/19/14 [History Confirmed 07/14/16] Metformin HCl 1,000 mg PO BEDTIME 05/19/14 [History Confirmed 07/14/16] Metformin HCl 1,500 mg PO QAM 05/19/14 [History Confirmed 07/14/16] Metoprolol Succinate [Metoprolol Succinate ER] 25 mg PO DAILY 05/19/14 [History Confirmed 07/14/16] Omeprazole 20 mg PO BID 05/19/14 [History Confirmed 07/14/16] Simvastatin 40 mg PO DAILY 05/19/14 [History Confirmed 07/14/16] Insulin NPH (Human) (Isophane) [Novolin N Relion] 40 units SUBCUT DAILY [History Confirmed 07/14/16] Insulin NPH (Human) (Isophane) [Novolin N Relion] 80 units SUBCUT DAILY [History Confirmed 07/14/16] Review of Systems - Measurements Intake and Output: Intake and Output Last 24 Hours 07/17/16 07/18/16 07/19/16 07/20/16 06:59 06:59 06:59 06:59 Intake Total 2210 2835 4049 12.3 Output Total 670 800 200 Balance 1540 2035 3849 12.3 Intake: IV Fluids 1000 2085 1050 ABX - ZOSYN 105 NS (0.9%) 1875 1050 magnesium 105 IVPB 120 824 ABX - ZOSYN 110 317 potassium phosphate 507 Medicated IV 12.3 GEN - Diltiazem/Cardizem 12.3 Oral 8406 545 3611 Output: Urine 295 800 200 Bob 375 Other: Estimated Void Medium Medium # Bowel Movements 1 Estimated Stool Amount Small # Voids 1 - Review of Systems Constitutional Symptoms: Positive: Fatigue Negative: Weight Gain, Weight Loss, Fever, Night Sweats Dermatology: Negative: Rash, Skin Lesions HEENT: Negative: Change in Hearing, Vertigo, Tinnitus, Sinus Problem Eyes: Negative: Change in Vision, Double Vision, Eye Pain Thyroid: Negative: Cold Intolerance, Heat Intolerance, Sweatiness, Tremor, Frequent Defecation, Palpitations, Primary Hypothyroidism, Primary Hyperthyroidism Pulmonary: Negative: Cough, Sputum, Hemoptysis, Wheezing, Respiratory Distress, Shortness of Breath, COPD, Asthma Cardiology: Negative: Chest Pain, Shortness of Breath, Palpitations, Swelling of Ankles, Peripheral Vascular Dis, Edema, Faintness, Syncope, Claudication, Paroxysmal Nocturnal Dyspnea, Orthopnea Gastroenterology: Positive: Abdominal Pain Negative: Heartburn Genital - Urinary: Negative: Dysuria, Hematuria, Polyuria Musculoskeletal: Negative: Joint Pain, Joint Stiffness, Arthritis, Osteoporosis, Low Back Pain , Sciatica Endocrinology: Positive: Obesity, Diabetes Negative: Thyroid Problems, Adrenal Problems, Polydipsia, Polyuria, Pituitary Disease Hematologic/Lymphatic: Positive: Anemia Negative: Easy Brusing, Hx Leukemia, Hx Lymphoma, Use of Anticoagulant, Use of Antiplatelet Drugs Neurology: Negative: Headaches, Migraines, Change in Vision, Diplopia, Dizziness, Change in Balancing, Change in Coordination, Change in Memory Psychiatry: Negative: Depression, Anxiety, Depressed Mood, Adhedonia, Sexual Dysfunction Allergic/Immunologic: Negative: Hx Anaphylaxis, Hx Angioedema, Hx Environmental Allergies, Hx Seasonal Allergies, Hx HIV Review of Systems Statement: All other review of systems negative, unless stated above. Objective Vital Signs: Temp Pulse Resp BP Pulse Ox 97.6 F 95 18 138/77 90 07/19/16 06:53 07/19/16 09:30 07/19/16 11:00 07/19/16 11:00 07/19/16 09:30 Oxygen Devices in Use Now: None Appearance: obese, nad Ears/Nose/Mouth/Throat: Clear Oropharnyx, Mucous Membranes Moist Neck: NL Appearance and Movements; NL JVP Respiratory: Symmetrical Chest Expansion and Respiratory Effort Cardiovascular: - - irregularly irregular, no significant murmur Abdominal: - - obese, no rigidity Extremities: No Edema Skin: No Rash or Ulcers Neurological: Alert and Oriented x 3 Laboratory Results: 07/19/16 06:23 07/19/16 06:23 Total Bilirubin 0.40 mg/dL (0.2-1.0) 07/14/16 13:20 AST 13 U/L (13-39) 07/14/16 13:20 ALT 13 U/L (7-52) 07/14/16 13:20 Alkaline Phosphatase 60 U/L (34-104) 07/14/16 13:20 B-Natriuretic Peptide 54 pg/mL (-100) 07/14/16 13:20 Total Protein 6.3 g/dL (6.4-8.9) L 07/14/16 13:20 Albumin 3.6 g/dL (3.2-5.2) 07/14/16 13:20 Globulin 2.7 g/dL (2-4) 07/14/16 13:20 Albumin/Globulin Ratio 1.3 (1-3) 07/14/16 13:20 07/19/16 06:23 Troponin I 0.04 H* Diagnostic Imaging: exercise NM stress test 05/2014: No defect, normal LVEF,mild septal hypokinesis EKG Data: EKG 05/2014: NSR, borderline precordial early repolarization EKG 07/14/2016: NSR, borderline LAD, PVCs EKG 07/19/2016: Rapid Afib rate 130 bpm, PVC vs. ashmann, probable LAFB Assessment/Plan Mr. Ochoa is a 71-year-old male with a history of diabetes, hypertension, obesity, CKD, anemia seen for post-op colon cancer resection asymptomatic atrial fibrillation CHADs2-vasc score of at least 3 of less than 24-48 hour duration failed to chemically cardiovert with IV amiodarone and he declined electrical cardioversion. - Rate control with PO metoprolol and cardizem - Would anticoagulated with eliquis 5 mg PO BID if no contraindication from a surgical standpoint and once bleeding risk minimized (currently on IV heparin) - Check thyroid studies - Check TTE - Will arrange cardiology follow up. Thank you for allowing me to participate in the cardiovascular care of this patient. Please do not hesitate to contact me with questions or concerns
[2016-07-19] MEDS: Diltiazem TAB* 30 MG PO SCH ×2 (13:35→20:46)
[2016-07-19 13:40] LABS: T4 7.15 g/dL (6.09-12.23)
[2016-07-19 13:41] LABS: TSH (Thyroid Stimulating Horm) 2.63 mcIU/mL (0.34-5.60)
[2016-07-19 13:46] LABS: Free T4 1.2 ng/dL (0.61-1.12)
[2016-07-19 13:50] LABS: Total T3 0.3 ng/mL (0.87-1.78)
--- NOTE | 2016-07-19 14:52 | PN ---
Progress Note - Progress Note SOAP: Subjective: pt seen and examined. Overnight events noted. Pos. flatus and BM. Appetite is returning. Pt wants to go home to get some sleep. Pathology reviewed with Pt. No need to consult Onc. Cardiology note appreciated Objective: af vss, UO good abdo: obese, less tender today; no redness no calf tenderness labs reviewed Assessment: POD4 R colectomy; adenoCa. T1N0 Plan: OOB glucose control Anticoagualtion to be follwed by Hosp. advance diet abx for 1 more days d/c IVF d/c planning
--- NOTE | 2016-07-19 16:46 | ECHO ---
Patient: YANELY SANDHU [facility] Rec#: [id number] : 1945 Date: 07/19/2016 Age: 71y Height: 182.88 cm / 72.0 in Weight: 133.81 kg / 294.9 lbs Sex: M BSA: 2.5 Room#: [facility] Admit Date#: 07/14/2016 Type: Inpatient Referring: Leora Resendiz Reading: Lito Oro MD Torch Heater: Mane Vernon RDCS Transthoracic Echocardiogram Indication: A.FIB BP: 138/77 HR: 113 Rhythm: A-Fib Findings History: Obesity,HTN, Hypercholesterolemia Technical Comments: The study is technically difficult. The study is technically limited due to poor acoustic windows. The study is technically limited due to poor apical windows. The study is technically limited due to patient body habitus. Left Ventricle: The left ventricular chamber size is mildly dilated. Moderate concentric left ventricular hypertrophy is observed. Global left ventricular wall motion and contractility are within normal limits. There is normal left ventricular systolic function. The estimated ejection fraction is 50-55%. The assessment of diastolic function is non-diagnostic. Left Atrium: The left atrium is not well visualized. The left atrium is moderately dilated. Right Ventricle: The right ventricular cavity size is normal. The right ventricular global systolic function is normal. Right Atrium: The right atrial cavity size is normal. Aortic Valve: The aortic valve structure is not well visualized. There is aortic annular calcification. There is no evidence of aortic regurgitation. There is no evidence of aortic stenosis. Mitral Valve: The mitral valve leaflets appear normal. There is mitral annular calcification. There is a trace of mitral regurgitation. Tricuspid Valve: The tricuspid valve appears normal in structure and function. There is trace tricuspid regurgitation. Unable to estimate the right ventricular systolic pressure. Pulmonic Valve: The pulmonic valve structure is not well visualized. There is no evidence of pulmonic regurgitation. There is no pulmonic stenosis. Pericardium: There is no pericardial effusion. Aorta: There is no dilatation of the ascending aorta. The aortic arch is not well visualized. There is mild dilatation of the aortic root. Pulmonary Artery: The main pulmonary artery is not well visualized. Venous: The venous system is not well visualized. Conclusions There is normal left ventricular systolic function. The estimated ejection fraction is 50-55%. Global left ventricular wall motion and contractility are within normal limits. The left ventricular chamber size is mildly dilated. Moderate concentric left ventricular hypertrophy is observed. The left atrium is moderately dilated. Functionally benign heart valves. There is mild dilatation of the aortic root. There is no prior echocardiogram available to compare with at this time. Measurements Name Value Normal Range RVIDd (AP) 2D 2.5 cm (0.9 - 2.6) RVDdMajor (2D) 3.2 cm (2.2 - 4.4) RAd ISD 4CH 5 cm (3.4 - 4.9) RA (A4C)W 3.9 cm (2.9 - 4.6) IVSd (2D) 1.5 cm (0.6 - 1) LVPWd (2D) 0.9 cm (0.6 - 1) LVIDd (2D) 5.6 cm (3.6 - 5.4) LVIDs (2D) 3.9 cm - Aortic Annulus 2.3 cm (1.4 - 2.6) Ao root diameter (2D) 3.6 cm (2.1 - 3.5) Ascending Ao 2.6 cm (2.1 - 3.4) LA dimension (AP) 2D 5.1 cm (2.3 - 3.8) LAd ISD 4CH 6.8 cm (2.9 - 5.3) LA ISD 4CH W 3 cm (2.5 - 4.5) Name Value Normal Range MV E-wave Vmax 1.28 m/sec - MV deceleration time 183 msec - MV A-wave Vmax 1.01 m/sec - MV E:A ratio 19.65 ratio - LV septal e' Vmax 0.06 m/sec - LV lateral e' Vmax 0.06 m/sec - LV E:e' septal ratio 21.3 ratio - LV E:e' lateral ratio 21.3 ratio - Name Value Normal Range AV Vmax 1.49 m/sec - LVOT Vmax 0.7 m/sec - Name Value Normal Range PV Vmax 0.68 m/sec - PV peak gradient 1.87 mmHg -
[2016-07-19] MEDS ORDERED: Calcium Gluconate INJ* 2 GM in NS 0.9% 100 ML* 100 ML IV ONE (17:16)
[2016-07-19] MEDS: Apixaban* 5 MG TAB PO SCH (20:46)
[2016-07-19] MEDS: Insulin GLARGINE(*) 1 UNITS UNIT SUBCUT SCH (20:47)
[2016-07-20] MEDS: Diltiazem TAB* 30 MG PO SCH ×3 (00:32→12:39)
[2016-07-20] MEDS: Piperac/Tazob 3.375 gm in NS* 3.375 GM/100 ML BAG IVPB SCH ×2 (04:36→10:46)
[2016-07-20 05:53] LABS: BUN/Creatinine Ratio 14.9 (8-20); Calcium 7.6 mg/dL (8.6-10.3); EGFR Non-African American 52.9 (>60); Magnesium 1.9 mg/dL (1.9-2.7); Phosphorus 2.8 mg/dL (2.5-5.0); Potassium 3.9 mmol/L (3.5-5.0)
[2016-07-20] MEDS: Calcium Carbonate TAB* 1250 MG (CALCIUM 500 MG) PO SCH (08:12)
[2016-07-20] MEDS: Omeprazole CAP* 20 MG PO SCH (08:12)
[2016-07-20] MEDS: Metoprolol Succinate XL TAB* 25 MG PO SCH (08:12)
[2016-07-20] MEDS: Apixaban* 5 MG TAB PO SCH (08:12)
[2016-07-20] MEDS: Atorvastatin* 20 MG TAB PO SCH (08:12)
[2016-07-20] MEDS: Insulin LISPRO* 1 UNITS UNIT SUBCUT SCH ×4 (09:09→12:38)
--- NOTE | 2016-07-20 10:05 | PN ---
Subjective Date of Service: 07/20/16 Interval History: . Met with patient; feels well and wants to go home. Surgery team planning discharge today I agree with this; patient also feels ready for dc and spontaneously expressed that Medications Recommended at Discharge: (I entered them in the dc plan and electronically sent to patient's o/p pharmacy.) 1. NPH Insulin 80 units in the morning and 40 units at night 2. HCTZ 25 mg daily 3. Glipizide 5 mg BID 4. Simvastatin 40 mg daily 5. Eliquis 5 mg PO BID (NEW, Rx) 6. Lisinopril 40 mg daily 7. Metformin 1000 mg QHS & 1500 mg AM 8. Metoprolol XL 25 mg daily (continue) 9. Omeprazole 20 mg BID 10. Diltiazem CD 120 mg PO (NEW, Rx) 11. Calcium Carbonate 1250 mg PO daily (NEW, Rx) 12. Tylenol 650 mg PO Q6 prn pain/fever (OTC) This does not include pain control meds, and I will leave that to surgery to handle. Other medications may, of course, be added to this list as Dr. Andrade sees appropriate. (note, Dr Andrade indicated no other pain meds; patient not requiring them) Family History: Unchanged from Admission Social History: Unchanged from Admission Past Medical History: Unchanged from Admission Objective Active Medications: . Acetaminophen (Tylenol Tab*) 650 mg PO Q6H PRN PRN Reason: FEVER Apixaban (Eliquis*) 5 mg PO BID [facility] Last Admin: 07/20/16 08:12 Dose: 5 mg Atorvastatin Calcium (Lipitor*) 20 mg PO DAILY [facility] Last Admin: 07/20/16 08:12 Dose: 20 mg Calcium Carbonate (Calcium Carbonate Tab*) 1,250 mg PO BID [facility] Last Admin: 07/20/16 08:12 Dose: 1,250 mg Dextrose (D50w Syringe 50 Ml*) 12.5 gm IV PUSH .FOR FS < 60 - SS PRN PRN Reason: FS < 60 Diltiazem HCl (Cardizem Tab*) 30 mg PO Q6HR [facility] Last Admin: 07/20/16 05:18 Dose: 30 mg Piperacillin Sod/Tazobactam Sod (Zosyn 3.375 Gm In Ns Premix*) 3.375 gm in 100 mls @ 200 mls/hr IVPB Q6H [facility] Last Admin: 07/20/16 04:36 Dose: 200 mls/hr Insulin Glargine (Lantus(*)) 48 units SUBCUT Q24H [facility] Last Admin: 07/19/16 20:47 Dose: 48 units Insulin Human Lispro (Humalog*) 0 units SUBCUT ACHS [facility] PRN Reason: Protocol Last Admin: 07/20/16 09:09 Dose: 3 units Insulin Human Lispro (Humalog*) 0 units SUBCUT AC [facility] PRN Reason: Protocol Last Admin: 07/20/16 09:09 Dose: 1 unit Metoprolol Succinate (Toprol Xl Tab*) 25 mg PO DAILY [facility] Last Admin: 07/20/16 08:12 Dose: 25 mg Morphine Sulfate (Morphine Inj (Syringe)*) 4 mg IV Q1H PRN PRN Reason: PAIN Last Admin: 07/17/16 19:27 Dose: 4 mg Omeprazole (Prilosec Cap*) 20 mg PO 0730,1630 [facility] Last Admin: 07/20/16 08:12 Dose: 20 mg Ondansetron HCl (Zofran Inj*) 4 mg IV Q6H PRN PRN Reason: NAUSEA Last Admin: 07/17/16 06:34 Dose: 4 mg Oxycodone/Acetaminophen (Percocet 5/325 Tab*) 1 tab PO Q4H PRN PRN Reason: PAIN Last Admin: 07/19/16 21:56 Dose: 1 tab Oxycodone/Acetaminophen (Percocet 5/325 Tab*) 2 tab PO Q4H PRN PRN Reason: PAIN - SEVERE Last Admin: 07/19/16 12:49 Dose: 2 tab . Vital Signs 07/19/16 07/19/16 07/19/16 10:00 10:30 11:00 Temperature Pulse Rate Respiratory 23 17 18 Rate Blood Pressure 144/61 123/76 138/77 (mmHg) O2 Sat by Pulse Oximetry 07/19/16 07/19/16 07/19/16 11:34 12:00 12:49 Temperature Pulse Rate Respiratory 24 24 16 Rate Blood Pressure 139/70 165/109 (mmHg) O2 Sat by Pulse Oximetry Oxygen Devices in Use Now: None Appearance: NAD - sitting up in chair - A&Ox3 Eyes: No Scleral Icterus Ears/Nose/Mouth/Throat: Clear Oropharnyx Neck: NL Appearance and Movements; NL JVP, No Thyroid Enlargement, Masses Respiratory: Symmetrical Chest Expansion and Respiratory Effort Cardiovascular: NL Sounds; No Murmurs; No JVD Abdominal: NL Sounds; No Tenderness; No Distention Lymphatic: No Cervical Adenopathy Extremities: No Edema Skin: No Rash or Ulcers Neurological: Alert and Oriented x 3 Lines/Tubes/Other Access: Clean, Dry and Intact Peripheral IV Nutrition: Taking PO's Result Diagrams: 07/19/16 06:23 07/20/16 04:49 Assess/Plan/Problems-Billing . Assessment: 71 yo male with PMH of morbid obesity, HTN, Insulin dependent DM 2, CKD who presents to the ED on 07/14/16 with c/o abdominal pain found to have appendiceal obstruction by possibility of colon mass. s/p surgery without complication. course was complicated by pAF (rapid rate) now back in NSR without cardioversion. CHADS score recommends anticoagulation and patient in agreement. - Patient Problems (1) Atrial fibrillation Current Visit: Yes Status: Acute Priority: High Code(s): I48.91 - UNSPECIFIED ATRIAL FIBRILLATION Comment: - Paroxysmal - Now in NSR in 70's; BP ok - No previous history of afib; patient asymptomatic and denies CP, SOB - repeat trop indeterm/neg - Cardiology consult; AC/Rate control - Echo results noted - o/p cardiology follow up as per Dr. Maria. Status and Disposition: Inpatient. Dispo per surgery. Most likely home when medically stable for DC
[2016-07-20 10:52] VITALS: BP 182/67
--- NOTE | 2016-07-21 01:34 | DS ---
CC: Luis Alfredo Amin MD; Heath Mahoney MD; [facility]; Dr. Maria DISCHARGE SUMMARY: DATE OF ADMISSION: 07/14/16 DATE OF DISCHARGE: 07/20/16 HISTORY OF PRESENT ILLNESS: Mr. Ochoa is a 71-year-old gentleman who presented [facility] Emergency Room on 07/14/16 with complaints of right lower quadrant pain. The patient's workup including CT scan an d labs was consistent with a large appendiceal and proximal cecal lesion. Concern for acute appendi citis was entertained and the patient was maintained n.p.o. on IV fluids. Antibiotics were not star tex, however, and Gastroenterology was recommended. Gastroenterology saw the patient and was concerned about malignancy; however, they were unable to co lonoscopy in the early stage. The patient was not able to be prepped and the patient was admitted, hydrated and was stable. However, on hospital day 2, the patient's white count increased from 9 upon admission to 13.5. The patient's pain persisted in the right lower quadrant and the consideration was that the patient may be suffering with secondary appendicitis to a lesion that required excision. With this in mind, rec ommendation was for diagnostic laparoscopy and possible right colectomy. This was performed on 03/23. Please see operative report for details. Briefly, the patient underwent a diagnostic laparos copy and an open right hemicolectomy. 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 The lesion originated at the terminal ileum. In the postoperative period, the patient did well, was maintained on [employer] and n.p.o. until postoperat geeta day 2, wanting to start on a clear diet. Hospitalist was involved with this care secondary to his diabetes with poor glucose control. They m anaged the insulin. He was maintained on antibiotics given the findings. By postoperative day 3, with less pain and positive bowel movements, the patient's diet was advanced . His IV fluids were turned off. In the night of postoperative day 3 to 4, the patient had an arrhythmia, was noted to be in atrial f ib and was transferred to the telemetry unit. Cardiology was consulted, hospitalists were involved and the patient was started on beta-misty. Dr. Maria saw the patient and discussed with the patient the need for anticoagulation, medications and the possibility of cardioverting the patient. The patient chose not to get cardioverted. With his diet advanced to a low-fat diet, his pathology was discussed with the patient. Oncology wa s not called. The patient was followed from postoperative day 4 and postoperative day 5 in the tele metry unit where he was rate controlled. On postoperative day 5, the patient was seen and examination was performed and plan was made to a [facility]. Case was discussed with the hospitalist service. PHYSICAL EXAMINATION: On the day of discharge, the patient was afebrile. Vital signs were stable. Heart rate 69 with normal rate. Normotensive with good urine output and bowel movements. He is al ert and oriented x3, in no apparent distress. HEENT: Normocephalic, atraumatic. Sclerae anicteric. Mucous membranes are moist. Lungs: Clear to auscultation bilaterally. Abdomen: Soft, obese, ten jeni along the incision. Staple line intact with no evidence of erythema. Hyperactive bowel sounds. Extremities within normal limits. No calf tenderness. PLAN: Discharge home for followup in my office next week for removal of dani. The patient will n eed a colonoscopy to look for synchronous lesions in the near future and he has already an upcoming appointment with Dr. Amin. He will restart his home medications including metoprolol. We will a lso give him a prescription for Eliquis. He will follow up with Dr. Anuj Maria, as well as Dr. Gonzales. He can follow up with his primary care physician and he is instructed to contact my office o n Friday to make an appointment. I gave him my cell phone number as well to contact me if there are any concerns. [id number]/[facility] #: [id number]
== END 2016-07-20 13:13 | disposition home or self-care (01) | DRG 330 ==
LOC: ED 12:26 → SSU 17:45 → OBSVTOIN 19:00 → MEDTELE 07-19 06:08
PROVIDERS: ADMIT Surgery; ATTEND Surgery
PROC: 0DTF0ZZ Resection of Right Large Intestine, Open Approach (ICD-10-PCS; principal; 2016-07-14)
PROC: 0WJP4ZZ Inspection of Gastrointestinal Tract, Percutaneous Endoscopic Approach (ICD-10-PCS; 2016-07-14)
PROC: 3E0234Z Introduction of Serum, Toxoid and Vaccine into Muscle, Percutaneous Approach (ICD-10-PCS; 2016-07-16)
DX: C18.0 Malignant neoplasm of cecum (principal); Z68.41 Body mass index [BMI] 40.0-44.9, adult; E11.22 Type 2 diabetes mellitus with diabetic chronic kidney disease; E11.65 Type 2 diabetes mellitus with hyperglycemia; E87.8 Other disorders of electrolyte and fluid balance, not elsewhere classified; K35.80 Unspecified acute appendicitis; E66.01 Morbid (severe) obesity due to excess calories; N18.3 Chronic kidney disease, stage 3 (moderate); I12.9 Hypertensive chronic kidney disease with stage 1 through stage 4 chronic kidney disease, or unspecified chronic kidney disease; K21.9 Gastro-esophageal reflux disease without esophagitis; Z53.39 Other specified procedure converted to open procedure; Z23 Encounter for immunization; Z87.442 Personal history of urinary calculi; E78.00 Pure hypercholesterolemia, unspecified; D64.9 Anemia, unspecified; K76.0 Fatty (change of) liver, not elsewhere classified; Z79.4 Long term (current) use of insulin; I48.0 Paroxysmal atrial fibrillation; Z82.49 Family history of ischemic heart disease and other diseases of the circulatory system; Z80.0 Family history of malignant neoplasm of digestive organs; Z83.6 Family history of other diseases of the respiratory system
CPT/HCPCS: 36415; 74177; 80048; 80053; 81003; 81015; 82150; 82330; 82570; 83690; 83735; 83880; 84100; 84300; 84436; 84439; 84443; 84479; 84484; 85025; 85027; 85730; 86140; 88309; 90732; 93005; 93306; 94760; A9270-GY; J0282; J0330; J0610; J1170; J1240; J1335; J1644; J1885; J2250; J2270; J2405; J2543; J2704; J3010; J3475; Q9967

== ENCOUNTER 2016-10-19 16:52 | Observation (INO) | payer MEDICARE ==
[2016-10-19] MEDS ORDERED: NS 0.9% 1000 ML* 1,000 ML IV ONE (17:40)
[2016-10-19] MEDS ORDERED: Diltiazem IV VIAL* 125 MG in D5W 100 ML BAG* 100 ML IV ONE (17:41)
[2016-10-19] MEDS ORDERED: Diltiazem IV* 5 MG/ML 5 ML VIAL (for loading dose/IV Push) (25 MG) IV SLOW PU ONE (17:41)
[2016-10-19 18:12] LABS: Hematocrit 29 % (42-52); Hemoglobin 9.8 g/dl (14.0-18.0); Mean Corpuscular HGB Conc 33 g/dl (31-36); Mean Corpuscular Hemoglobin 26 pg (27-31); Mean Corpuscular Volume 79 fL (80-94); Mean Platelet Volume 8 um3 (7.4-10.4); Red Blood Count 3.72 10^6/ul (4.0-5.4); Red Cell Distribution Width 16 % (10.5-15); White Blood Count 3.2 10^3/ul (3.5-10.8)
[2016-10-19 18:22] LABS: Add Diff/Slide Review? Slide Review Added; Comments Flag Yes
[2016-10-19 18:29] LABS: Albumin 3.3 g/dL (3.2-5.2); BUN/Creatinine Ratio 21.2 (8-20); EGFR African American 61.6 (>60); EGFR Non-African American 47.9 (>60); Globulin 2.8 g/dL (2-4); Magnesium 1.2 mg/dL (1.9-2.7); Potassium 4.4 mmol/L (3.5-5.0); Total Bilirubin 0.3 mg/dL (0.2-1.0); Total Protein 6.1 g/dL (6.4-8.9)
[2016-10-19 18:31] LABS: Troponin I 0.07 ng/mL (<0.04)
[2016-10-19 18:53] LABS: TSH (Thyroid Stimulating Horm) 1.33 mcIU/mL (0.34-5.60)
[2016-10-19] MEDS ORDERED: Acetaminophen TAB* 325 MG PO PRN (20:04)
--- NOTE | 2016-10-19 20:49 | RAD ---
HISTORY: Atrial fibrillation COMPARISONS: August 04, 2007 VIEWS:1: Single frontal portable view of the chest at 8:15 PM FINDINGS: LINES AND TUBES: None. CARDIOMEDIASTINAL SILHOUETTE: The cardiomediastinal silhouette is normal for portable technique. PLEURA: The costophrenic angles are sharp. No pleural abnormalities are noted. LUNG PARENCHYMA: The lungs are clear. ABDOMEN: The upper abdomen is clear. There is no subphrenic gas. BONES AND SOFT TISSUES: No bone or soft tissue abnormalities are noted. IMPRESSION: NO ACTIVE CARDIOPULMONARY DISEASE.
[2016-10-19] MEDS ORDERED: metFORMIN* 1,000 MG TAB PO SCH (21:00)
[2016-10-19] MEDS: glipiZIDE TAB* 5 MG PO SCH (21:22)
[2016-10-19] MEDS: Diltiazem CD CAP* 240 MG PO SCH (21:22)
[2016-10-19] MEDS: Omeprazole CAP* 20 MG PO SCH (21:22)
--- NOTE | 2016-10-19 21:41 | ED ---
Ishmael Graves Erika, scribed for Cirilo Beebe MD on 10/19/16 at 1838 . Palpitations / Dysrhythmia - HPI Summary HPI Summary: Patient is a 71-year-old male presenting to the ED with a CC of lightheadedness. Patient reports a Hx A Fib - he states he had one episode of asymptomatic A Fib in July 2016 four days after abdominal surgery. He states he did not need to be cardioverted at that time. Patient elected to not start eliquis at that time. He reports that this morning, he woke up and felt lightheaded upon standing, and notes some pressure in his head. He states he rested all day. Patient denies chest pain and SOB. He does report a slight "sensation" mid-sternal in his chest, but he is unsure if it is related as he sometimes has pain there due to his esophageal tumor, for which he is being treated with radiation therapy and chemotherapy. Patient denies any symptoms while lying down, but states he would become lightheaded if he stood up. He reports his blood pressure is usually around 140-150 systolic and 50-70 diastolic. - History of Current Complaint Chief Complaint: EDDysrhythmPalp Time Seen by Provider: 10/19/16 17:10 Hx Obtained From: Patient Onset/Duration: Lasting Hours, Still Present Timing: Constant Severity Currently: Moderate Character: Irregular Alleviating: Rest - feels asymptomatic with rest Associated Signs & Symptoms: Lightheadedness - Allergy/Home Medications Allergies/Adverse Reactions: Allergies Allergy/AdvReac Type Severity Reaction Status Date / Time No Known Allergies Allergy Verified 10/01/16 10:38 PMH/Surg Hx/FS Hx/Imm Hx Endocrine/Hematology History: Reports: Hx Diabetes Denies: Hx Thyroid Disease Cardiovascular History: Reports: Hx Atrial Fibrillation, Hx Hypercholesterolemia , Hx Hypotension, Hx Hypertension Denies: Hx Peripheral Vascular Disease GI History: Reports: Other GI Disorders - cholelithiasis History: Reports: Hx Kidney Stones Denies: Hx Renal Disease Musculoskeletal History: Denies: Hx Arthritis, Hx Osteoporosis Sensory History: Reports: Hx Contacts or Glasses Opthamlomology History: Reports: Hx Contacts or Glasses Neurological History: Denies: Hx Headaches Psychiatric History: Denies: Hx Anxiety, Hx Depression - Surgical History Surgery Procedure, Year, and Place: CHOLECYSTECTOMY Infectious Disease History: Denies: Traveled Outside the in Last 30 Days - Family History Known Family History: Negative: Hypertension, Diabetes - Social History Occupation: Employed Full-time Lives: With Family Alcohol Use: None Hx Substance Use: No Substance Use Type: Reports: None Hx Tobacco Use: No Smoking Status (MU): Never Smoked Tobacco Review of Systems Cardiovascular: Other - "sensation" mid sternal Negative: Chest Pain Negative: Shortness Of Breath Neurological: Other - lightheadedness Positive: Headache - head pressure All Other Systems Reviewed And Are Negative: Yes Physical Exam Triage Information Reviewed: Yes Vital Signs On Initial Exam: Initial Vitals Temp Pulse Resp BP Pulse Ox 98.1 F 72 18 134/95 100 10/19/16 16:52 10/19/16 16:52 10/19/16 16:52 10/19/16 16:52 10/19/16 16:52 Vital Signs Reviewed: Yes Appearance: Positive: Well-Appearing, No Pain Distress, Obese Skin: Positive: Warm, Skin Color Reflects Adequate Perfusion, Dry Head/Face: Positive: Normal Head/Face Inspection Eyes: Positive: Normal ENT: Positive: Normal ENT inspection Neck: Positive: Supple, Nontender Respiratory/Lung Sounds: Positive: Clear to Auscultation, Breath Sounds Present Cardiovascular: Positive: Tachycardia, Other - Irregularly irregular rhythm Abdomen Description: Positive: Nontender, Soft Bowel Sounds: Positive: Present Musculoskeletal: Positive: Normal Neurological: Positive: Normal Psychiatric: Positive: Affect/Mood Appropriate Diagnostics - Vital Signs Vital Signs Temp Pulse Resp BP Pulse Ox 10/19/16 16:52 98.1 F 72 18 134/95 100 - Laboratory Lab Results: Lab Results 10/19/16 10/19/16 10/19/16 Range/Units 18:00 18:00 18:00 WBC 3.2 L (3.5-10.8) 10^3/ul RBC 3.72 L (4.0-5.4) 10^6/ul Hgb 9.8 L (14.0-18.0) g/dl Hct 29 L (42-52) % MCV 79 L (80-94) fL MCH 26 L (27-31) pg MCHC 33 (31-36) g/dl RDW 16 H (10.5-15) % Plt Count 155 (150-450) 10^3/ul MPV 8 (7.4-10.4) um3 Neut % (Auto) 85.9 H (38-83) % Lymph % (Auto) 3.4 L (25-47) % Rich % (Auto) 4.8 (1-9) % Eos % (Auto) 5.4 (0-6) % Baso % (Auto) 0.5 (0-2) % Absolute Neuts (auto) 2.8 (1.5-7.7) 10^3/ul Absolute Lymphs (auto) 0.1 L (1.0-4.8) 10^3/ul Absolute Monos (auto) 0.2 (0-0.8) 10^3/ul Absolute Eos (auto) 0.2 (0-0.6) 10^3/ul Absolute Basos (auto) 0 (0-0.2) 10^3/ul Absolute Nucleated RBC 0 10^3/ul Nucleated RBC % 0.1 Sodium 134 (133-145) mmol/L Potassium 4.4 (3.5-5.0) mmol/L Chloride 102 (101-111) mmol/L Carbon Dioxide 26 (22-32) mmol/L Anion Gap 6 (2-11) mmol/L BUN 31 H (6-24) mg/dL Creatinine 1.46 H (0.67-1.17) mg/dL Est GFR ( Amer) 61.6 (>60) Est GFR (Non-Af Amer) 47.9 (>60) BUN/Creatinine Ratio 21.2 H (8-20) Glucose 276 H (70-100) mg/dL Lactic Acid 1.9 (0.5-2.0) mmol/L Calcium 9.0 (8.6-10.3) mg/dL Magnesium 1.2 L (1.9-2.7) mg/dL Total Bilirubin 0.30 (0.2-1.0) mg/dL AST 11 L (13-39) U/L ALT 10 (7-52) U/L Alkaline Phosphatase 48 (34-104) U/L Troponin I 0.07 H* (<0.04) ng/mL Total Protein 6.1 L (6.4-8.9) g/dL Albumin 3.3 (3.2-5.2) g/dL Globulin 2.8 (2-4) g/dL Albumin/Globulin Ratio 1.2 (1-3) TSH 1.33 (0.34-5.60) mcIU/mL Result Diagrams: 10/19/16 18:00 10/19/16 18:00 Lab Statement: Any lab studies that have been ordered have been reviewed, and results considered in the medical decision making process. - EKG 16:59 Cardiac Rate: Tachycardia - at 132 bpm EKG Rhythm: Atrial Fibrillation - with RVR Course/Dx - Course Course Of Treatment: Mr. Ochoa was found to be in A-Fib with a rapid response and was slowed with IV cardizem. - Diagnoses Provider Diagnoses: Atrial fibrillation with rapid ventricular response - Physician Notifications Discussed Care Of Patient With: Dr. Gurrola (hospitalist) at 18:59 - agrees to admit - Critical Care Time Critical Care Time: 30-74 min Discharge - Discharge Plan Condition: Stable Disposition: ADMITTED TO [facility] The documentation as recorded by the Ishmael arguelles Erika accurately reflects the service I personally performed and the decisions made by , Cirilo Beebe MD.
[2016-10-19] MEDS: Apixaban* 5 MG TAB PO SCH (22:47)
[2016-10-20 05:57] LABS: Hematocrit 28 % (42-52); Hemoglobin 9.6 g/dl (14.0-18.0); Mean Corpuscular HGB Conc 34 g/dl (31-36); Mean Corpuscular Hemoglobin 27 pg (27-31); Mean Corpuscular Volume 78 fL (80-94); Mean Platelet Volume 8 um3 (7.4-10.4); Red Cell Distribution Width 17 % (10.5-15)
[2016-10-20 06:12] LABS: BUN/Creatinine Ratio 22.5 (8-20); Calcium 8.8 mg/dL (8.6-10.3); EGFR African American 55.4 (>60); EGFR Non-African American 43.1 (>60); Potassium 3.8 mmol/L (3.5-5.0)
[2016-10-20] MEDS ORDERED: Diltiazem IV VIAL* 125 MG in D5W 100 ML BAG* 100 ML IV SCH (07:00)
[2016-10-20] MEDS: Omeprazole CAP* 20 MG PO SCH (07:24)
--- NOTE | 2016-10-20 07:35 | PN ---
Progress Note - Progress Note Note: Cross cover note: SBP in 80s this AM. Cardizem drip decreased from 10 to 4 mg/hr Creatinine up today >1.5 Metformin discontinued. Reevaluate with kidney fxn improvement
[2016-10-20] MEDS ORDERED: Magnesium Sulfate 2 GM IV* 2 GM/50 ML BAG IVPB ONE (08:20)
[2016-10-20] MEDS ORDERED: Potassium Chlor TAB* 20 MEQ TAB.ER PO ONE (08:21)
[2016-10-20] MEDS ORDERED: Hydrochlorothiazide TAB* 50 MG PO SCH (09:00)
[2016-10-20] MEDS ORDERED: Metoprolol Succinate XL TAB* 25 MG PO SCH (09:00)
[2016-10-20] MEDS ORDERED: Lisinopril TAB* 10 MG PO SCH ×2 (09:00→21:00)
[2016-10-20] MEDS ORDERED: Magnesium Oxide TAB* 400 MG PO SCH (09:00)
[2016-10-20] MEDS ORDERED: Aspirin EC Low Dose* 81 MG TAB.EC PO SCH (09:00)
[2016-10-20] MEDS ORDERED: Atorvastatin* 20 MG TAB PO SCH (09:00)
[2016-10-20] MEDS ORDERED: Insulin NPH(*) 1 UNITS UNIT SUBCUT SCH ×3 (09:00→18:00)
[2016-10-20] MEDS ORDERED: metFORMIN* 1,000 MG TAB PO SCH (09:00)
[2016-10-20] MEDS ORDERED: metFORMIN* 500 MG TAB PO SCH (09:00)
[2016-10-20] MEDS: Diltiazem CD CAP* 240 MG PO SCH (09:02)
[2016-10-20] MEDS: Apixaban* 5 MG TAB PO SCH (09:02)
[2016-10-20] MEDS ORDERED: Omeprazole CAP* 20 MG PO SCH (09:27)
[2016-10-20] MEDS: glipiZIDE TAB* 5 MG PO SCH (10:46)
[2016-10-20 11:25] VITALS: BP 125/39
--- NOTE | 2016-10-20 20:41 | CONS ---
CC: Anuj Maria DO; Heath Mahoney MD; Radames Chicas MD CONSULTATION REPORT: DATE OF CONSULT: 10/20/16 REASON FOR CONSULTATION: Atrial fibrillation and dizziness. CHIEF COMPLAINT: Dizziness. HISTORY OF PRESENT ILLNESS: Mr. Ochoa is a 71-year-old gentleman followed by my partner Dr. Anuj Maria with a history of atrial fibrillation. He has also been recently diagnosed and undergoing tr eatment for esophageal cancer. The patient states he was in his usual state of health until yesterd ay morning. About an hour after he awoke, he started feeling dizzy, like his head was full and he g ot very dizzy when stood up. Later in the day, he checked his pulse and found it to be rapid and ir regular and they called our office. I advised he present to the emergency room. In the emergency r oom, an EKG confirmed that he was in atrial fibrillation with a rapid ventricular response. Overnig ht, he has been placed on a diltiazem drip and he was on double the dose of his oral diltiazem at [facility] and feels much better. He feels back to normal. In the past, the patient had not wanted to be on blood thinners, but on admission was now amenable t o them and he has been on them overnight. The denied any alcohol intake around the time of the event. He feels he sleeps well, but does admit that his tells him he will snore some time. He feels a bit overwhelmed with his cancer diagno sis and had been hoping that he could postpone dealing with the atrial fibrillation, stating he has only had this once before. PAST MEDICAL HISTORY: The patient has a past medical history of esophageal cancer, followed by Dr. Chicas and Dr. Franks (Surgery at [place]), history of hypertension, diabetes, dyslipidemia, significan t obesity, paroxysmal atrial fibrillation, chronic kidney disease stage 3. PAST SURGICAL HISTORY: Includes vitrectomy, left eye in 2006; cholecystectomy in 2007. MEDICATIONS: Inpatient medications included: 1. Diltiazem drip was at 10 mg an hour, currently at 4 mg an hour. 2. Aspirin 81 mg a day. 3. Hydrochlorothiazide 25 mg a day. 4. Glipizide 5 mg b.i.d. 5. Simvastatin 40 mg a day (inpatient, Lipitor 20 mg a day). 6. Lisinopril 40 mg a day. 7. Omeprazole 40 mg b.i.d. 8. Toprol-XL 25 mg a day. 9. Metformin 25 mg a day, on hold. 10. Outpatient NovoLog insulin sliding scale. 11. Vitamin D3 and vitamin D. 12. Eliquis 5 mg b.i.d. 13. Tylenol p.r.n. ALLERGIES: He has no known drug allergies. FAMILY HISTORY: Significant in that his father at age 86 of "natural causes." The patient's mo ther had a history of pancreatic cancer. SOCIAL HISTORY: The patient is a former smoker. Denies recent alcohol intake. He is , live s with this . REVIEW OF SYSTEMS: Negative for recent fevers, chills, sweats. No change in medications. No alcoh ol intake. He denies orthopnea or PND. Snoring as mentioned above. Other review of systems unrema rkable. The patient was not really interested in answering a lot of detailed questions. PHYSICAL EXAM: The patient is 6 feet, weighs 278 pounds with a BMI of 38. Blood pressure 104/49, p ulse AFib in the 80s, he has been afebrile overnight, oxygen saturation is 96% on room air. General Appearance: A very overweight, predominantly centripetally obese older gentleman, appears somewhat older than 71 years of age, sitting, eating breakfast, in no acute distress. Psychologically calm, cooperative, pleasant. Neurologically awake, alert, oriented to person, place and time. Cranial n erves II to XII are grossly intact. He is ambulating well and no gross motor deficits, but formal n eurological exam not performed. Skin: Slightly pale, but no evidence of cyanosis or rashes. HEENT: Pupils are equal and round. Mucous membranes are moist. Neck: Thick without thyromegaly or lymp hadenopathy. Palpable carotid pulses, free of bruits. Lungs: Clear with good effort. No wheezes, rales or rhonchi. Coronary: S1 and S2 irregularly irregular. No murmurs appreciated. Abdomen: R otund, nontender, active bowel sounds and soft. Lower extremities are free of edema and warm. DIAGNOSTIC STUDIES/LAB DATA: White count 4, hemoglobin 9.6, hematocrit 28, and platelets 149,000. Sodium 138, potassium 3.8 (4.4 on admission), chloride 105, bicarb 23, BUN 36, creatinine 1.6 (basel ine creatinine in 2017 ranges 1.3 to 1.6), glucose 72. Troponin #1 of 0.07, troponin #2 of 0.08, tr oponin #3 of 0.07. ALT of 10, TSH 1.33. Total protein 6.1, albumin 3.3. EKGs reveal atrial fibril lation with a rapid ventricular rate greater than 150 and overnight oximeters confirms he remains in AFib, but with good rate control. Chest x-ray shows no evidence of acute infiltrates. Outpatient studies include a stress test from May 2014 with no evidence of ischemia or infarction. Echoca rdiogram from 07/19/16, showed moderate left ventricular hypertrophy, ejection fraction 50% to 55%, left atrial enlargement and good valvular function. IMPRESSION: In summary, Mr. Ochoa is a 71-year-old gentleman, who was dizzy on the day of admissio n yesterday and found to be in atrial fibrillation with a rapid ventricular rate, unknown duration b ut probably started yesterday. Mr Ochoa has atherosclerotic risks of diabetes, hypertension, dysli pidemia, significant obesity. For the atrial fibrillation, I agree with initiation of anticoagulation, I explained to the patient that he is at risk for recurrence, explaining the risk factors including age, obesity, sleep apnea, pulmonary issues, electrolyte disturbances and more. I explained the risk to him off anticoagulatio n and he is understanding. I recommended TAMY-guided cardioversion as we are suspicious that this occurred yesterday, but cannot confirm it. He is amenable to this approach, but does not want to wait another day to get this. I t is not available in this institution on the weekend. As he is feeling well with rate control, I recommended we double his outpatient diltiazem from 120 t o 240 mg a day, to prevent hypotension. I recommend we decrease the lisinopril to 20 mg but give th is at night. He should be sent home on the Eliquis. I educated the patient about potential contributions to going back into atrial fibrillation and that this was a controllable, but not curable condition. He stated he is pretty overwhelmed with his ca ncer diagnosis and really wants to focus on that at this time. 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 Maria, thi s week to arrange for followup for his atrial fibrillation, potential TAMY-guided cardioversion and c onsider addition of an antiarrhythmic, now that he has had a second event. Borderline elevation of troponins are noted. He is at risk for underlying atherosclerotic disease, but atrial fibrillation with a rapid rate could do this alone. As he is very mild and stable, we will plan on an updated outpatient stress test as well. [id number]/[facility] #: [id number]
--- NOTE | 2016-10-20 21:47 | HP ---
CC: Dr. Mahoney; Dr. Maria. ADMISSION HISTORY AND PHYSICAL: DATE OF ADMISSION: 10/19/16 CHIEF COMPLAINT: Palpitations. HISTORY OF PRESENT ILLNESS: Mr. Keller is a 71-year-old man with recent diagnosis of esophageal and colon cancer who developed palpitations this morning around 9:00 a.m. He had a long history of atrial fibrillation in the past and was concerned about recurrence, so he called Dr. Toscano about this. He was advised by Dr. Toscnao to come to the emergency department for evaluation. The patient denies any headache, chest tightness or syncope. He felt like his heart was pounding and racing. The patient's recent medical history is notable for admission on 07/14/16 with right lower quadrant pain. CT scan showed abnormality that was suspicious for a mass versus appendicitis. He had a right hemicolectomy and was found to have a T1N0M0 colon cancer. He had an episode of atrial fibrillation for about 24 hours during that hospital stay, but this resolved without treatment and the patient declined anticoagulation at that time despite being advised. In , the patient had endoscopy that showed an esophageal mass. This was biopsied and showed to be esophageal cancer. The patient saw Dr. Chicas on 09/23 and at that point, the plan to have neoadjuvant chemotherapy and radiation followed surgery. The patient was currently on chemotherapy and radiation for esophageal cancer. He had surgery planned to remove the mass on December [address] Franks in [place]. PAST MEDICAL HISTORY: Includes: 1. Obesity. 2. Type 2 diabetes. 3. Hyperlipidemia. 4. Hypertension. 5. B12 deficiency. 6. Chronic kidney disease. PAST SURGICAL HISTORY: 1. Laparoscopic cholecystectomy. 2. Hernia repair. 3. Right hemicolectomy in July. MEDICATIONS ON ADMISSION: 1. Tylenol as needed. 2. Aspirin 81 mg p.o. daily. 3. Calcium carbonate 150 mg p.o. daily. 4. Vitamin B12 injection 1000 mcg IM monthly. 5. Cardizem CD 120 mg p.o. daily. 6. Glipizide 5 mg p.o. b.i.d. 7. Hydrochlorothiazide 50 mg p.o. daily. 8. NPH insulin 80 units subcutaneous q.a.m. 9. NPH insulin 40 units subcutaneous q.p.m. 10. Lisinopril 40 mg p.o. daily. 11. Metformin 1500 mg p.o. q.a.m. and 1000 mg p.o. q.p.m. 12. Metoprolol XL 25 mg p.o. q.a.m. 13. Omeprazole 20 mg p.o. b.i.d. 14. Simvastatin 40 mg p.o. q.h.s. ALLERGIES: None. FAMILY HISTORY: Notable for father of COPD in his 80s. Mother at 93 of pancreatic cancer. Sister has diabetes and is alive. Maternal aunt had pancreatic cancer also. 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 He is . He has no children that he is in contact with. He smoked a pack a day for 15 years, but quit in 1979. He has no alcohol or drug use. REVIEW OF SYSTEMS: The patient denies any fevers, weight loss, or anorexia. He does have difficulty swallowing and he can only chew soft solids and to have liquids. The patient denies any cough, or shortness of breath. The patient denies any nocturia, dysuria. Remainder of a 14-point review of systems is negative other than mentioned in the HPI. PHYSICAL EXAMINATION GENERAL: He is alert, in no acute distress. VITAL SIGNS: Temperature is 36.9, pulse is 131 on presentation down to 73 in the emergency room, respiratory rate is 20 to 28, oxygen saturation is 99%, blood pressure is 133/74. HEENT: Head is normocephalic, atraumatic. Sclerae anicteric. Pupils equal, round and reactive to light and accommodation. Oropharynx is moist with no lesions. NECK: No JVD. No carotid bruit. Thyroid is not enlarged. No nodules. LUNGS: Clear to auscultation and percussion bilaterally. HEART: Irregular, normal rate. No murmurs. ABDOMEN: Obese. Soft, nontender. Positive bowel sounds. No hepatosplenomegaly. No masses. EXTREMITIES: No peripheral edema. Dorsalis pedis pulses are absent. Posterior tibial pulses 1+ bilaterally. NEUROLOGIC: Cranial nerves II through XII intact. Motor strength is 5/5 throughout. Deep tendon reflexes are symmetric. DIAGNOSTIC STUDIES/LABORATORY DATA: Sodium 134, potassium 4.4, chloride 102, bicarb 26, BUN 31, creatinine 1.46, glucose 276, calcium 9.0, magnesium 1.2, troponin 0.07. Albumin 3.3, AST 11, ALT 10, bilirubin 0.3, TSH 1.23. White count is 3.2, hemoglobin 9.8, hematocrit 29%, platelets 155. Troponin 0.07. Chest x-ray shows no infiltrates or effusions. EKG shows atrial fibrillation with rapid ventricular response. Ventricular rate is 132. No ischemic ST or T wave changes. ASSESSMENT AND PLAN: A 71-year-old man with recurrent paroxysmal atrial fibrillation in the setting of chemotherapy and radiation. The patient will be admitted to telemetry and will have continued rate control, which was started in the emergency department with diltiazem drip. He will be increased oral diltiazem to give him better rate control. The patient agrees to have anticoagulation given the high risk of recurrence rate with upcoming metabolic stressors from chemotherapy as well as upcoming surgery. I will consult with Cardiology to discuss need for any antiarrhythmic therapy or other further cardiac workup. For his mildly elevated troponin, he will have troponins repeated every 3 hours until they peak. This is likely a mild degree of demand ischemia and not a true myocardial infarction. For his type 2 diabetes, we will continue the last home dose of NPH and give sliding scale insulin if needed. I will also continue his oral hypoglycemic medications allowing him to eat. DVTs prophylaxis will not be necessary given that he is starting on Eliquis for atrial fibrillation. Esophageal cancer management will be through Dr. Chicas as an outpatient. I do not see a need for inpatient consult at this time. Discussed the case with the patient and his healthcare proxy, who is his in the room. [id number]/[facility] #: [id number] PETER
--- NOTE | 2016-10-21 13:37 | DS ---
DISCHARGE SUMMARY: DATE OF ADMISSION: 10/19/16 DATE OF DISCHARGE: 10/20/16 PRIMARY DIAGNOSIS: Atrial fibrillation with rapid ventricular response. SECONDARY DIAGNOSES: 1. Colon cancer at the cecum, resected recently. 2. Esophageal cancer, undergoing treatment with chemotherapy and radiation. 3. Type 2 diabetes. 4. Obesity. 5. Hypertension. 6. Chronic kidney disease. 7. Hypomagnesemia. 8. Vitamin B12 deficiency. MEDICATIONS ON DISCHARGE: 1. Acetaminophen 650 mg p.o. q.6 hours p.r.n. pain. 2. Eliquis 5 mg p.o. b.i.d. 3. Aspirin 81 mg p.o. q. day. 4. Calcium carbonate 250 mg p.o. q. day. 5. Vitamin B12 1000 mcg IM q. month. 6. Diltiazem CD 240 mg p.o. q. day. 7. Glipizide 5 mg p.o. b.i.d. 8. Hydrochlorothiazide 50 mg p.o. q. day. 9. NPH insulin 80 units subcu in the morning and 40 units subcu in the p.m. 10. Lisinopril 20 mg p.o. q. day. 11. Magnesium oxide 400 mg p.o. q. day. 12. Toprol-XL 25 mg p.o. q. day. 13. Omeprazole 20 mg p.o. b.i.d. 14. Simvastatin 40 mg p.o. q.h.s. 15. Metformin 1000 mg p.o. b.i.d. HOSPITAL COURSE: The patient was admitted with palpitations that developed in the morning of admission. This was not associated with chest pain or syncope. The patient had history of one episode of atrial fibrillation postop in July that resolved spontaneously. In this case, it did not resolve spontaneously, he was admitted observation on telemetry. His heart rate was controlled with a diltiazem drip and his diltiazem oral medication was increased from 120 to 240 mg per day. He was maintained on low-dose beta misty as well. Cardiology consultation was obtained with Dr. Toscano and she advised repletion of magnesium and potassium, which was accomplished inpatient. Suggestion would be to repeat BMP and magnesium next week in the outpatient setting. The patient's initial EKG showed atrial fibrillation with rapid ventricular response with a ventricular rate of 132 and no clear ischemia. His initial troponin was 0.07 and was 0.08, and then was 0.07 on day of discharge. His creatinine was 1.46 on admission and 1.65 on discharge, which was within his normal range. His hemoglobin A1c was 7.5. The patient agreed to be initiated on oral anticoagulant and he was started on Eliquis twice a day. He has upcoming plans for surgical treatment of esophageal cancer after he completes neoadjuvant radiation and chemotherapy. He is at high risk of recurrent AFib and/or DVT and PE with his active cancer, so recommend repeating Eliquis until advised otherwise by cardiology. He is advised to see Dr. Maria within the next week for TAMY cardioversion. Other antiarrhythmics could be determined at that point as well if necessary. During the hospital stay, Dr. Toscano cleared the patient about sleep apnea symptoms and he does have some somnolence during the day and snoring at night. He declined further discussion or investigation of this. DISPOSITION: To home. FOLLOWUP: He is advised to see primary care within the next week as well as Dr. Maria for followup. ACTIVITY: Should be as tolerated. DIET: Should be diabetic diet. CC: Dr. Heath Mahoney [place]; Dr. Anuj Maria, [facility] Cardiology, Dr. Chicas* [id number]/[facility] #: [id number] PETER
[2016-11-09] MEDS ORDERED: Cyanocobalamin INJ * 1,000 MCG/ML VIAL 1 ML VIAL IM SCH (09:00)
== END 2016-10-20 15:40 | disposition home or self-care (01) ==
LOC: ED 16:52 → MEDTELE 19:00
PROVIDERS: ADMIT Internal Medicine; ATTEND Internal Medicine
DX: I48.91 Unspecified atrial fibrillation (principal); C15.9 Malignant neoplasm of esophagus, unspecified; Z85.038 Personal history of other malignant neoplasm of large intestine; E11.9 Type 2 diabetes mellitus without complications; I12.9 Hypertensive chronic kidney disease with stage 1 through stage 4 chronic kidney disease, or unspecified chronic kidney disease; E11.22 Type 2 diabetes mellitus with diabetic chronic kidney disease; N18.9 Chronic kidney disease, unspecified; Z79.4 Long term (current) use of insulin; E83.42 Hypomagnesemia; E53.8 Deficiency of other specified B group vitamins; Z79.899 Other long term (current) drug therapy; Z79.82 Long term (current) use of aspirin; Z79.01 Long term (current) use of anticoagulants; Z79.84 Long term (current) use of oral hypoglycemic drugs; Z87.891 Personal history of nicotine dependence
CPT/HCPCS: 36415; 71010; 80048; 80053; 83036; 83605; 83735; 84443; 84484; 85025; 93005; 96365; 96366; 96367; 99291; A9270-GY; G0378

== ENCOUNTER 2016-11-19 11:10 | Inpatient (IN) | payer MEDICARE ==
[2016-11-19] MEDS: HYDROcodone/ACET. 7.5/325 LIQ* 15 ML UDC PO PRN (16:52)
[2016-11-19] MEDS ORDERED: Ondansetron TAB* 4 MG PO PRN (16:56)
[2016-11-19] MEDS ORDERED: Prochlorperazine TAB* 10 MG PO PRN (16:56)
[2016-11-19] MEDS ORDERED: Magic Mouth Was-BEN/MAAL/LIDO SWISH SPIT PRN (16:56)
[2016-11-19] MEDS ORDERED: Acetaminophen TAB* 325 MG PO PRN (16:58)
[2016-11-19] MEDS ORDERED: Temazepam CAP* 15 MG PO PRN (17:00)
[2016-11-19] MEDS: glipiZIDE TAB* 5 MG PO SCH (20:47)
[2016-11-19] MEDS: Omeprazole CAP* 20 MG PO SCH (20:47)
[2016-11-19] MEDS: NS 0.9% 1000 ML* 3,000 ML IV ONE (20:52)
[2016-11-19] MEDS: Morphine INJ* 10 MG/ML 1 ML SYRINGE IV PRN (21:25)
[2016-11-19] MEDS: Insulin NPH(*) 1 UNITS UNIT SUBCUT SCH (22:01)
[2016-11-20] MEDS: NS 0.9% 1000 ML* 3,000 ML IV ONE (01:33)
[2016-11-20] MEDS: HYDROcodone/ACET. 7.5/325 LIQ* 15 ML UDC PO PRN ×3 (01:33→11:51)
[2016-11-20 05:41] LABS: Hematocrit 24 % (42-52); Hemoglobin 8.3 g/dl (14.0-18.0); Mean Corpuscular HGB Conc 34 g/dl (31-36); Mean Corpuscular Hemoglobin 27 pg (27-31); Mean Corpuscular Volume 80 fL (80-94); Mean Platelet Volume 7 um3 (7.4-10.4); Red Blood Count 3.02 10^6/ul (4.0-5.4); Red Cell Distribution Width 21 % (10.5-15)
[2016-11-20 05:43] LABS: Comments Flag Yes; White Blood Count 1.8 10^3/ul (3.5-10.8)
[2016-11-20 05:51] LABS: BUN/Creatinine Ratio 27.3 (8-20); Calcium 8.3 mg/dL (8.6-10.3); EGFR African American 76.5 (>60); EGFR Non-African American 59.5 (>60); Magnesium 1.8 mg/dL (1.9-2.7); Potassium 4.6 mmol/L (3.5-5.0)
[2016-11-20] MEDS: Metoprolol Succinate XL TAB* 25 MG PO SCH (07:25)
[2016-11-20] MEDS: glipiZIDE TAB* 5 MG PO SCH ×2 (07:26→20:25)
[2016-11-20] MEDS: Omeprazole CAP* 20 MG PO SCH ×2 (07:26→20:25)
[2016-11-20] MEDS: Diltiazem CD CAP* 240 MG PO SCH (07:26)
[2016-11-20] MEDS: Aspirin Low Dose CHEW TAB* 81 MG PO SCH (07:26)
[2016-11-20] MEDS: metFORMIN* 1,000 MG TAB PO SCH (07:26)
[2016-11-20] MEDS: Insulin NPH(*) 1 UNITS UNIT SUBCUT SCH ×2 (08:36→20:27)
[2016-11-20] MEDS ORDERED: Diltiazem CD CAP* 240 MG PO SCH (09:00)
[2016-11-20] MEDS: NS 0.9% 1000 ML* 1,000 ML IV SCH ×2 (11:48→23:16)
[2016-11-20] MEDS ORDERED: NS 0.9% 1000 ML* 1,000 ML IV SCH (14:45)
[2016-11-20] MEDS: Morphine INJ* 10 MG/ML 1 ML SYRINGE IV PRN (21:17)
[2016-11-21 05:12] LABS: BUN/Creatinine Ratio 23.5 (8-20); Calcium 8.1 mg/dL (8.6-10.3); EGFR African American 97.5 (>60); EGFR Non-African American 75.8 (>60); Potassium 4.5 mmol/L (3.5-5.0)
[2016-11-21 07:58] VITALS: BP 133/50
[2016-11-21] MEDS: Aspirin Low Dose CHEW TAB* 81 MG PO SCH (08:22)
[2016-11-21] MEDS: metFORMIN* 1,000 MG TAB PO SCH (08:23)
[2016-11-21] MEDS: Diltiazem CD CAP* 240 MG PO SCH (08:23)
[2016-11-21] MEDS: glipiZIDE TAB* 5 MG PO SCH (08:23)
[2016-11-21] MEDS: Omeprazole CAP* 20 MG PO SCH (08:23)
[2016-11-21] MEDS: Metoprolol Succinate XL TAB* 25 MG PO SCH (08:23)
[2016-11-21] MEDS: Insulin NPH(*) 1 UNITS UNIT SUBCUT SCH (08:23)
[2016-11-21] MEDS: NS 0.9% 1000 ML* 1,000 ML IV SCH (09:00)
[2016-11-21] MEDS ORDERED: ACETAMINOPHEN PO PRN (09:35)
[2016-11-21] MEDS ORDERED: HYDROCODONE PO PRN (09:35)
[2016-11-21] MEDS ORDERED: Cyanocobalamin INJ * 1,000 MCG/ML VIAL 1 ML VIAL IM SCH (10:00)
[2016-11-21] MEDS ORDERED: Ergocalciferol CAP* 50000 UNIT PO SCH (10:00)
[2016-11-21] MEDS ORDERED: Insulin NPH(*) 1 UNITS UNIT SUBCUT SCH (21:00)
--- NOTE | 2016-11-22 01:19 | DS ---
DISCHARGE SUMMARY: DATE OF ADMISSION: 11/19/16 DATE OF DISCHARGE: 11/21/16 ATTENDING PHYSICIAN: Becky Parks MD (DICTATED BY MARIANNE ACEVES) PRINCIPAL DIAGNOSES: 1. Profound dehydration secondary to severe esophagitis and dysphagia. 2. History of esophageal cancer. 3. Type 2 diabetes. 4. Hyperlipidemia. 5. Atrial fibrillation secondary to dehydration. 6. Chronic kidney disease. 7. Abdominal discomfort/pain. 8. Electrolyte abnormalities. 9. Hypertension history. DISCHARGE MEDICATIONS: Include: 1. Tylenol 325 mg as needed every 4 to 6 hours. 2. Aspirin 81 mg p.o. daily. 3. Calcium carbonate 1250 mg daily. 4. Cyanocobalamin injections 1000 mcg q. monthly. 5. Diltiazem long acting 240 mg p.o. daily. 6. Ergocalciferol caplets 50,000 units p.o. every 7 days. 7. Hydrocodone with Tylenol liquid 7.5/325 liquid 15 mL every 4 hours as needed for discomfort. 8. Insulin 40 units subcutaneous at bedtime and 20 units subcutaneous twice daily during the day. 9. Bumex 5 mL p.o. 4 times a day. 10. Magnesium oxide 400 mg p.o. daily. 11. Metoprolol succinate XL 25 mg, to resume until his hydration levels are better. 12. Omeprazole 40 mg p.o. twice daily. 13. Zofran 4 mg p.o. every 6 hours as needed for nausea. 14. Compazine 10 mg every 6 hours as needed for nausea. 15. Simvastatin 40 mg p.o. daily. 16. Glipizide 5 mg p.o. twice daily. 17. Metformin 1000 mg p.o. daily. HOSPITAL COURSE: The patient was admitted to the hospital with a pressure in the radiation oncology unit at systolic 70 over diastolic 30 and was immediately started with wide open normal saline hydration. His pressure came up to 122 after 1 L of fluid. It was felt that this patient was unable to hydrate on his own and required electrolyte replacing and significant hydration over the next couple of days. He was placed on telemetry and did have an element of atrial fibrillation, which was felt secondary to his severe dehydration. In addition, his creatinine level did rise secondary to his dehydration and came down nicely after aggressive fluids. He did not have any febrile episodes during his hospital stay and feels significantly improved and will be discharged to home with the aforementioned medications. He will be scheduled for IV hydration on a daily basis at the [facility] office and will come in tomorrow. He will need to follow up both with his attending at [facility] and Dr. Clark as previously scheduled and his blood pressure remains stable and afebrile. MARIANNE ACEVES [id number]/[facility] #: [id number] PETER
[2016-11-22] MEDS ORDERED: Atorvastatin* 20 MG TAB PO SCH (09:00)
[2016-11-22] MEDS ORDERED: Magnesium Oxide TAB* 400 MG PO SCH (09:00)
[2016-11-22] MEDS ORDERED: Calcium Carbonate TAB* 1250 MG (CALCIUM 500 MG) PO SCH (09:00)
== END 2016-11-21 11:26 | disposition home or self-care (01) | DRG 641 ==
LOC: MEDTELE 12:15
PROVIDERS: ADMIT Internal Medicine Hematology & Oncology; ATTEND Internal Medicine Hematology & Oncology
DX: E86.0 Dehydration (principal); I95.9 Hypotension, unspecified; I48.91 Unspecified atrial fibrillation; E11.22 Type 2 diabetes mellitus with diabetic chronic kidney disease; E87.8 Other disorders of electrolyte and fluid balance, not elsewhere classified; R13.10 Dysphagia, unspecified; K20.9 Esophagitis, unspecified; I12.9 Hypertensive chronic kidney disease with stage 1 through stage 4 chronic kidney disease, or unspecified chronic kidney disease; Z85.01 Personal history of malignant neoplasm of esophagus; E78.5 Hyperlipidemia, unspecified; N18.9 Chronic kidney disease, unspecified; R10.9 Unspecified abdominal pain; Z79.82 Long term (current) use of aspirin; Z79.4 Long term (current) use of insulin; Z85.038 Personal history of other malignant neoplasm of large intestine; Z80.0 Family history of malignant neoplasm of digestive organs; E66.9 Obesity, unspecified; Z68.35 Body mass index [BMI] 35.0-35.9, adult
CPT/HCPCS: 36415; 80048; 80053; 83735; 85025; 93005; 99222; A9270-GY; J2270